=== PATIENT | female | born 1990 | race Caucasian/White ===

== ENCOUNTER → 2016-08-22 | Outpatient (REF) | payer OTHER, MEDICAID ==
[~2016-08-22] MED LIST: ACET50TA PO; AMPI50CA PO; CEPH500C PO; COLA100C PO; FERR325T3 PO; IBUP800T23 PO; IBUP80TA PO; INDO50CA PO; MACR100C3 PO; MAKE250I IM; OXYC1TAB23 PO; PERC5TAB6 PO; PRENTAB7 PO; ZOFR20TA PO
== END | disposition home or self-care (01) ==
LOC: M LAB REF 12:44
PROVIDERS: ATTEND Advanced Practice Midwife
DX: R30.0 Dysuria (principal)

== ENCOUNTER → 2016-08-26 | Outpatient (CLI) | payer BC, OTHER, MEDICAID ==
[2016-08-26 13:23] LABS: BASO # 0.1 K/mm3 (0.0-0.2); BASO % 1.1 % (0.0-1.0); EOS # 0.1 K/mm3 (0.0-0.50); EOS % 1.4 % (0.0-3.0); LARGE UNSTAINED CELL # 0.2 K/mm3 (0.0-0.4); LARGE UNSTAINED CELL % 2.9 % (0.0-4.0); LYMPH # 2.6 K/mm3 (1.5-6.5); LYMPH % 34.3 % (24.0-44.0); MEAN CORPUSCULAR HEMOGLOBIN 27.7 pg (27.0-33.0); MEAN CORPUSCULAR HGB CONC 31.7 g/dl (32.0-36.5); MEAN CORPUSCULAR VOLUME 87.2 fl (80.0-96.0); MONO # 0.5 K/mm3 (0.0-0.8); MONO % 6.3 % (0.0-5.0); NEUTROPHILS # 4.1 K/mm3 (1.8-7.7); PLATELET COUNT, AUTOMATED 417 k/mm3 (150-450); RED CELL DISTRIBUTION WIDTH 13.1 % (11.5-14.5); WHITE BLOOD COUNT 7.6 K/mm3 (4.0-10.0)
[2016-08-26 13:50] LABS: ANION GAP 8 MEQ/L (8-16); BLOOD UREA NITROGEN 15 MG/DL (7-18); CALCIUM LEVEL 9.6 MG/DL (8.5-10.1); CARBON DIOXIDE LEVEL 29 MEQ/L (21-32); CHLORIDE LEVEL 103 MEQ/L (98-107); CREATININE FOR GFR 0.86 MG/DL (0.55-1.02); GLOMERULAR FILTRATION RATE > 60.0 (>60); GLUCOSE, FASTING 66 MG/DL (70-105); POTASSIUM SERUM 4.9 MEQ/L (3.5-5.1); SODIUM LEVEL 140 MEQ/L (136-145)
== END | disposition home or self-care (01) ==
LOC: M SMT 11:37
PROVIDERS: ATTEND Nurse Practitioner Family
DX: N20.0 Calculus of kidney (principal); D72.829 Elevated white blood cell count, unspecified

== ENCOUNTER → 2016-09-04 | Outpatient (CLI) | payer BC, MEDICAID ==
--- NOTE | 2016-09-04 11:53 | REP ---
CT ABDOMEN AND PELVIS WITHOUT CONTRAST: 09/04/2016 INDICATION: Renal stones. COMPARISON: None. TECHNIQUE: 3 mm contiguous spiral axial sections performed through the abdomen and pelvis without contrast. FINDINGS: The lung bases are clear bilaterally. The liver, spleen, and pancreas are without focal lesions. The gallbladder is without stones, wall thickening or biliary dilatation. The adrenal glands are normal. There is an indwelling left percutaneous nephrostomy with pigtail portion of the catheter within the left renal pelvis. There is a 6 mm irregular calculus within the lower pole left kidney on image 54, series 201, which is consistent with nonobstructing nephrocalculus. A small portion of catheter tubing of 7 mm length is projected over the lower pole, left renal rosas on image 48, series 201. There is a nonobstructing 5 mm lower pole right nephrocalculus as well as a 3 mm nonobstructing mid pole right nephrocalculus. There is no perinephric stranding. There are no visualized calcifications identified within the right ureter. Calcifications within the left pelvis on image 100, series 201, 4 mm in diameter , are most likely vascular in etiology. The abdominal aorta is of normal course and caliber. There are no pathologically enlarged retroperitoneal nodes. The uterus and adnexa are generous in size consistent with young patient age. There is no free fluid in the cul-de-sac. There is generalized under distention most compatible with spasm within the ascending and transverse colon. The terminal ileum is normal. The appendix is without inflammation. There is no free air or ascites. IMPRESSION: 1. There is an indwelling left percutaneous nephrostomy. There is a nonobstructing 6 mm calculus lower pole, left kidney. Additionally, there does appear to be a small piece of probable catheter tubing projected over the posterior mid to lower pole left kidney, best seen in image 48, series 201. 2. Calcification within the left lower pelvis of 5 mm diameter is likely vascular in etiology. This could be proved by obtaining a left retrograde pyelogram or anterograde pyelogram. 3. 2 nonobstructing right nephrocalculi, largest 5 mm. MTDD
== END | disposition home or self-care (01) ==
LOC: M RAD 10:32
PROVIDERS: ATTEND Nurse Practitioner Family
DX: N20.0 Calculus of kidney (principal); Z93.6 Other artificial openings of urinary tract status

== ENCOUNTER → 2016-09-08 | Outpatient (REF) | payer BC, MEDICAID | END | disposition home or self-care (01) | LOC: M SMT 14:29 | PROVIDERS: ATTEND Nurse Practitioner Family | DX: N20.0 Calculus of kidney (principal); N39.0 Urinary tract infection, site not specified ==

== ENCOUNTER → 2016-09-17 | Day surgery (SDC) | payer BC, OTHER, MEDICAID ==
[~2016-09-17] VITALS: Ht 147.3 cm; Wt 68.1 kg
[~2016-09-17] MED LIST changes: +CIPR500T89 PO; +CONRAY-60 60% 50ML VIAL (Q9961) As Ordered ONE; +CONRAY-60 60% 50ML VIAL (Q9961) XX ONE; +HYDROmorphone HCL 1 MG/ML SYRINGE (J1170) As Ordered ONE; +LIDOCAINE 2% INJ 100 MG/5 ML SDV (FOR ANES.) As Ordered ONE; +LR 1,000 ML IV SCH; +METOCLOPRAMIDE INJ 10MG/2ML VIAL (J2765) As Ordered ONE; +MIDAZOLAM INJ 2 MG/2 ML VIAL (J2250) As Ordered ONE; +ONDANSETRON 4MG/2ML VIAL (J2405) As Ordered ONE; +ONDANSETRON 4MG/2ML VIAL (J2405) IV PRN; +PERCOCET 5MG/325MG TAB PO PRN; +PROPOFOL 200 MG/20 ML VIAL As Ordered ONE; +ePHEDrine SULFATE 25 MG/5 ML(5MG/ML) SYRINGE As Ordered ONE; +fentaNYL 100 MCG/2 ML INJECTION (J3010) As Ordered ONE; +fentaNYL 100 MCG/2 ML INJECTION (J3010) IV PRN; +oxyBUTYnin 5 MG TAB PO PRN
[2016-09-17 09:18] LABS: CONTROL LINE UCG INT CTR LINE PRESENT
[2016-09-17] MEDS: HYDROmorphone HCL 1 MG/ML SYRINGE (J1170) IV PRN ×5 (14:47→15:34)
--- NOTE | 2016-09-17 15:13 | REP ---
C-ARM VIEWS DURING RETROGRADE PYELOGRAM: Two C-arm views are performed. The first view shows bilateral ureteral stents with their distal ends coiled in the region of the urinary bladder. The second view shows the right ureteral stent with the proximal end coiled in the region of the right kidney. There is contrast in the left pelvicaliceal system, partially opacifying it with the proximal end of the left ureteral stent coiled in the left renal pelvis. 25 seconds fluoroscopy time utilized. Signed by Balta Saldaña MD 09/17/2016 07:40 P
[2016-09-17 18:04] VITALS: BP 124/67
--- NOTE | 2016-09-18 16:34 | RO ---
DATE OF PROCEDURE: 09/17/2016 PREPROCEDURE DIAGNOSIS: Kidney stones. POSTPROCEDURE DIAGNOSIS: Kidney stones. PROCEDURE: Cystoscopy, bilateral ureteroscopy with laser lithotripsy and basket extraction of stones, bilateral retrograde pyelograms with intraoperative interpretation of images, bilateral ureteral stent placement, left nephrostomy tube removal. SURGEON: Dr. Minh Molina FIELD REIMBURSEMENT MANAGER: None. ANESTHESIA: General. OPERATIVE INDICATIONS: This is a 26-year-old female who is 1 month . She presented several months ago with acute onset left flank pain and was found to have moderate to severe left hydronephrosis presumably to an obstructing ureteral stone. She had a nephrostomy tube placed at that time. This tube has been intermittently changed and now, after she delivered, we had a CAT scan obtained. CAT scan was notable for a 5 mm right kidney stone as well as left-sided kidney stones and possible ureteral stones. She was brought to the operating room today for the above listed procedure. DESCRIPTION OF PROCEDURE: The patient was brought to the operating room and general anesthesia induced. Prophylactic antibiotics were infused. She was then placed in the dorsal lithotomy position and prepped and draped in the usual sterile fashion. The first thing we did was remove the left nephrostomy tube, and dressings were applied to that. Next, a cystoscope was inserted into the urethral meatus and advanced into the bladder. A wire was advanced up the right collecting system. Over the wire, a ureteral access sheath was advanced up the right collecting system. The stylet was then removed, and the wire was secured to the drape to serve as a safety wire. We then went up the right ureter with the flexible ureteroscope. Within the right kidney, only one stone was seen. This stone was about 5 mm in size. We grasped the stone with the basket and removed it from the kidney. A retrograde pyelogram was performed, and it was notable for no extravasation or hydronephrosis. At this point, the access sheath was removed along with the ureteroscope. I then utilized the previously placed wire to advance a #6- Macanese x 22-32 cm JJ ureteral stent up into the right collecting system. The wire was then removed, and there were adequate curls of the stent in the right renal pelvis and in the bladder. I then turned my attention to the left collecting system. A wire was then advanced up the left collecting system, and a ureteral access sheath was advanced over the wire up into the left collecting system. The stylet was then removed, leaving the wire in place. The wire was then secured to the drape to serve as a safety wire. Within the left kidney, there were two large stones seen. Of note, these stones appeared to be calcifications that had broken off in the nephrostomy tube. These we were able to fragment into smaller pieces using a 200 micron laser fiber, and then the larger pieces were removed. I then withdrew the ureteroscope and within the ureter, there did appear to be two separate stones. Both were about 4-5 mm in size. Both of these stones were grasped with a basket and were removed. The remainder of the ureter appeared to be free of stones. A retrograde pyelogram was performed, and it was notable for moderate left hydronephrosis with no extravasation. At this point, the ureteral access sheath was removed along with the ureteroscope and I utilized the wire to advance a #6-Macanese x 22-32 cm JJ ureteral stent up into the left collecting system. The wire was then removed, and there were adequate curls of the stent in the left renal pelvis and in the bladder. The bladder was then emptied of all fluids. This marked the conclusion of the procedure. The patient was then taken out of the dorsal lithotomy position, awakened from anesthesia, and transported to the recovery room in stable condition. ESTIMATED BLOOD LOSS: 0 mL. COMPLICATIONS: None. SPECIMENS: Kidney stones. PLAN: The patient will be brought back to be seen in the clinic in a week or two for stent removal. NIDHI
== END ==
LOC: M SDC 08:19
PROVIDERS: ATTEND Urology
DX: O90.89 Other complications of the puerperium, not elsewhere classified (principal); N20.0 Calculus of kidney; Z79.899 Other long term (current) drug therapy; Z87.442 Personal history of urinary calculi
CPT/HCPCS: 52332; 52352; 52356; 74420; 82360; 84703; 88300; C2617; J0690; J1170; J2250; J2405; J2765; J3010; Q9961

== ENCOUNTER → 2016-12-30 | Outpatient (REF) | payer BC, MEDICAID, OTHER ==
[~2016-12-30] MED LIST changes: -COLA100C PO; +COLA100C3 PO; -CONRAY-60 60% 50ML VIAL (Q9961) As Ordered ONE; -CONRAY-60 60% 50ML VIAL (Q9961) XX ONE; -HYDROmorphone HCL 1 MG/ML SYRINGE (J1170) As Ordered ONE; -LIDOCAINE 2% INJ 100 MG/5 ML SDV (FOR ANES.) As Ordered ONE; -LR 1,000 ML IV SCH; -METOCLOPRAMIDE INJ 10MG/2ML VIAL (J2765) As Ordered ONE; -MIDAZOLAM INJ 2 MG/2 ML VIAL (J2250) As Ordered ONE; -ONDANSETRON 4MG/2ML VIAL (J2405) As Ordered ONE; -ONDANSETRON 4MG/2ML VIAL (J2405) IV PRN; -PERCOCET 5MG/325MG TAB PO PRN; -PROPOFOL 200 MG/20 ML VIAL As Ordered ONE; -ePHEDrine SULFATE 25 MG/5 ML(5MG/ML) SYRINGE As Ordered ONE; -fentaNYL 100 MCG/2 ML INJECTION (J3010) As Ordered ONE; -fentaNYL 100 MCG/2 ML INJECTION (J3010) IV PRN; -oxyBUTYnin 5 MG TAB PO PRN
== END ==
LOC: M LAB REF 16:44
PROVIDERS: ATTEND Obstetrics & Gynecology
DX: Z12.4 Encounter for screening for malignant neoplasm of cervix (principal)

== ENCOUNTER → 2017-07-27 | Outpatient (REF) | payer OTHER, MEDICAID ==
[~2017-07-27] MED LIST changes: +AMPI500C9 PO; -AMPI50CA PO; +CIPR-249 PO; -CIPR500T89 PO; -COLA100C3 PO; +COLA100C5 PO; +IBUP1TAB7 PO; -IBUP800T23 PO; -MACR100C3 PO; +MACR100C43 PO; +PERC5TAB12 PO; -PERC5TAB6 PO
[2017-07-28 11:51] LABS: BASO # 0.1 10^3/uL (0.0-0.2); BASO % 0.7 % (0.0-1.0); EOS # 0.2 10^3/uL (0.0-0.50); EOS % 2.6 % (0.0-3.0); IMMATURE GRANULOCYTE % 0.2 % (0-0); LYMPH # 2.8 10^3/uL (1.5-6.5); LYMPH % 31.7 % (24.0-44.0); MEAN CORPUSCULAR HEMOGLOBIN 28.4 pg (27.0-33.0); MEAN CORPUSCULAR HGB CONC 33.1 g/dl (32.0-36.5); MONO # 0.6 10^3/uL (0.0-0.8); MONO % 6.4 % (0.0-5.0); NEUTROPHILS # 5.1 10^3/uL (1.8-7.7); NEUTROPHILS % 58.4 % (36.0-66.0); PLATELET COUNT, AUTOMATED 289 10^3/uL (150-450); RED CELL DISTRIBUTION WIDTH 12.8 % (11.5-14.5); WHITE BLOOD COUNT 8.8 10^3/uL (4.0-10.0)
[2017-07-28 12:38] LABS: THYROXINE (T4) 8.8 UG/DL (4.5-12.0)
== END ==
LOC: M SFHCCLAY 15:36
PROVIDERS: ATTEND Family Medicine
DX: R53.82 Chronic fatigue, unspecified (principal); D64.9 Anemia, unspecified

== ENCOUNTER → 2018-05-20 | Outpatient (CLI) | payer OTHER ==
[2018-05-20 18:14] LABS: BASO # 0.1 10^3/uL (0.0-0.2); BASO % 0.5 % (0.0-1.0); EOS # 0.1 10^3/uL (0.0-0.50); EOS % 1.2 % (0.0-3.0); HEMATOCRIT 36.7 % (36.0-47.0); HEMOGLOBIN 12.1 g/dl (12.0-15.5); IMMATURE GRANULOCYTE % 0.4 % (0-3.0); LYMPH # 2.4 10^3/uL (1.5-6.5); LYMPH % 22.8 % (24.0-44.0); MEAN CORPUSCULAR HEMOGLOBIN 28.7 pg (27.0-33.0); MONO # 0.9 10^3/uL (0.0-0.8); MONO % 8.7 % (0.0-5.0); NEUTROPHILS # 6.9 10^3/uL (1.8-7.7); NEUTROPHILS % 66.4 % (36.0-66.0); PLATELET COUNT, AUTOMATED 307 10^3/uL (150-450); RED BLOOD COUNT 4.22 10^6/uL (4.00-5.40); RED CELL DISTRIBUTION WIDTH 12.9 % (11.5-14.5); WHITE BLOOD COUNT 10.5 10^3/uL (4.0-10.0)
[2018-05-20 20:40] LABS: CHLAMYDIA DNA AMPLIFICATION NEGATIVE (NEGATIVE); GC DNA AMPLIFICATION NEGATIVE (NEGATIVE)
[2018-05-21 13:55] LABS: HBsAg Prenatal NEGATIVE (NEGATIVE); HIV 1&2 SCREEN CENTAUR NEGATIVE (NEGATIVE); RUBELLA IgG QUALITATIVE EQUIVOCAL (IMMUNE)
[2018-05-21 13:55] LABS: HEPATITIS C VIRUS ABY INDEX 0.2 INDEX (<0.8)
== END ==
LOC: M SMT 14:01
DX: Z34.81 Encounter for supervision of other normal pregnancy, first trimester (principal); Z36.89 Encounter for other specified antenatal screening; Z3A.10 10 weeks gestation of pregnancy
CPT/HCPCS: 86762

== ENCOUNTER 2018-06-17 10:32 | Day surgery (SDC) | payer OTHER, SELFPAY ==
[2018-06-17 10:58] LABS: HEMATOCRIT 33.9 % (36.0-47.0); HEMOGLOBIN 11.4 g/dl (12.0-15.5); MEAN CORPUSCULAR HEMOGLOBIN 28.7 pg (27.0-33.0); MEAN CORPUSCULAR HGB CONC 33.6 g/dl (32.0-36.5); MEAN CORPUSCULAR VOLUME 85.4 fl (80.0-96.0); PLATELET COUNT, AUTOMATED 246 10^3/uL (150-450); RED BLOOD COUNT 3.97 10^6/uL (4.00-5.40); RED CELL DISTRIBUTION WIDTH 12.9 % (11.5-14.5); WHITE BLOOD COUNT 12.7 10^3/uL (4.0-10.0)
[2018-06-17] MEDS: LR 1,000 ML IV (11:00)
[2018-06-17] MEDS ORDERED: MIDAZOLAM INJ 2 MG/2 ML VIAL (J2250) As Ordered (11:01)
[2018-06-17] MEDS ORDERED: LIDOCAINE 2% INJ 100 MG/5 ML SDV (FOR ANES.) As Ordered (11:01)
[2018-06-17] MEDS ORDERED: PROPOFOL 200 MG/20 ML VIAL As Ordered ×2 (11:01→12:23)
[2018-06-17] MEDS ORDERED: fentaNYL 100 MCG/2 ML INJECTION (J3010) As Ordered (11:02)
[2018-06-17] MEDS ORDERED: PERCOCET 5MG/325MG TAB PO (12:00)
[2018-06-17] MEDS ORDERED: CHLOROPROCAINE 2 % INJ PRES.FREE 20 ML VIAL (J2400) As Ordered (12:18)
[2018-06-17] MEDS ORDERED: ONDANSETRON 4MG/2ML VIAL (J2405) As Ordered (12:18)
[2018-06-17] MEDS ORDERED: ONDANSETRON 4MG/2ML VIAL (J2405) IV (13:15)
[2018-06-17] MEDS ORDERED: LR 1,000 ML IV (13:15)
[2018-06-17] MEDS ORDERED: fentaNYL 100 MCG/2 ML INJECTION (J3010) IV (13:15)
== END 2018-06-17 15:02 | disposition home or self-care (01) ==
LOC: M SDC 15:02
DX: O34.31 Maternal care for cervical incompetence, first trimester (principal); Z3A.14 14 weeks gestation of pregnancy
CPT/HCPCS: 59320

== ENCOUNTER → 2018-07-30 | Outpatient (CLI) | payer OTHER | LOC: M SMT 12:54 | DX: Z36.89 Encounter for other specified antenatal screening (principal); Z3A.19 19 weeks gestation of pregnancy | CPT/HCPCS: 76811 ==

== ENCOUNTER → 2018-11-11 | Outpatient (REF) | payer OTHER ==
[~2018-11-11] MED LIST changes: -ACET50TA PO; +MAPA500T2 PO; +PRENTAB55 PO; +UNIS25TA3 PO; +VITA100T96 PO; -ZOFR20TA PO; +ZOFR4TAB16 PO
== END ==
LOC: M LAB REF 16:52
PROVIDERS: ATTEND Obstetrics & Gynecology
DX: Z34.83 Encounter for supervision of other normal pregnancy, third trimester (principal)

== ENCOUNTER 2018-12-06 05:26 | Inpatient (IN) | payer OTHER ==
[~2018-12-06] VITALS: Ht 146.1 cm; Wt 85.6 kg
[2018-12-06] VITALS (9 sets, daily range): BP systolic 100–117; BP diastolic 54–65
[~2018-12-06 05:26] MED LIST changes: +VITA100T77 PO; -VITA100T96 PO
[2018-12-06] MEDS ORDERED: LR 1,000 ML IV SCH (05:49)
[2018-12-06] MEDS ORDERED: LACTATED RINGER'S 1000 ML IV STA (05:49)
[2018-12-06] MEDS ORDERED: ceFAZolin 2 GM/D5W 50 ML IV BAG (J0690 PER 500MG) As Ordered ONE (05:54)
[2018-12-06] MEDS ORDERED: BICITRA 30ML SOLN UDC As Ordered ONE (05:54)
[2018-12-06] MEDS ORDERED: BICITRA 30ML SOLN UDC PO ONE (06:00)
[2018-12-06 06:29] LABS: HEMATOCRIT 33.5 % (36.0-47.0); MEAN CORPUSCULAR HEMOGLOBIN 28.8 pg (27.0-33.0); MEAN CORPUSCULAR HGB CONC 32.8 g/dl (32.0-36.5); MEAN CORPUSCULAR VOLUME 87.7 fl (80.0-96.0); PLATELET COUNT, AUTOMATED 190 10^3/uL (150-450); RED BLOOD COUNT 3.82 10^6/uL (4.00-5.40); WHITE BLOOD COUNT 11.8 10^3/uL (4.0-10.0)
[2018-12-06] MEDS ORDERED: BUPIVACAINE/DEXTROSE 0.75% 2 ML AMP As Ordered ONE (07:09)
[2018-12-06] MEDS ORDERED: MORPHINE PRES-FREE INJ 10 MG/10 ML VIAL (J2274) As Ordered ONE (07:10)
[2018-12-06] MEDS ORDERED: NALOXONE INJ 0.4 MG/1 ML VIAL (J2310) IV PRN ×2 (07:44)
[2018-12-06] MEDS ORDERED: NALBUPHINE HCL 10 MG/ML AMP (J2300) IV PRN ×2 (07:44→09:15)
[2018-12-06] MEDS ORDERED: diphenhydrAMINE INJ 50MG/ML VIAL (J1200) IV PRN (07:44)
[2018-12-06] MEDS ORDERED: ONDANSETRON 4MG/2ML VIAL (J2405) IV PRN ×3 (07:44→09:15)
[2018-12-06] MEDS ORDERED: OXYTOCIN INJ 10 UNITS/ML VIAL (J2590) As Ordered ONE ×2 (07:47→08:29)
[2018-12-06] MEDS ORDERED: PHENYLephrine HCL 500 MCG/5 ML (100MCG/ML) SYRINGE (J2370) As Ordered ONE (07:47)
[2018-12-06] MEDS ORDERED: ONDANSETRON 4MG/2ML VIAL (J2405) As Ordered ONE ×2 (08:29→09:42)
[2018-12-06] MEDS ORDERED: KETOROLAC 60 MG/2 ML VIAL (J1885) As Ordered ONE (08:29)
[2018-12-06] MEDS ORDERED: OXYTOCIN DRIP 30 UNITS in APPROPRIATE DILUENT 1 EA IV SCH (08:52)
[2018-12-06] MEDS: DOCUSATE SODIUM 100 MG CAP PO SCH ×2 (09:00→21:33)
[2018-12-06] MEDS ORDERED: MEASLES,MUMPS,RUBELLA VACCINE INJ (MMR-II) (90707) SC SCH (09:00)
[2018-12-06] MEDS: PRENATAL VITAMINS CHEWABLE TABLET PO SCH (09:00)
[2018-12-06] MEDS ORDERED: RHOGAM 300 MCG (1500 IU) INJ (J2790) IM SCH (09:00)
[2018-12-06] MEDS ORDERED: PROMETHAZINE 25 MG TAB PO PRN (09:00)
[2018-12-06] MEDS ORDERED: OXYTOCIN 30 UNITS IN 0.9% NaCl 500ML IV BAG (J2590) As Ordered ONE (09:02)
[2018-12-06] MEDS ORDERED: METHYLERGONOVINE MALEATE 0.2 MG/ML VIAL (J2210) IM STA (09:12)
[2018-12-06] MEDS ORDERED: KETOROLAC 30 MG/ML VIAL (J1885) IV PRN (09:15)
[2018-12-06] MEDS ORDERED: MEPERIDINE INJ 25 MG/ML VIAL (J2175) IV PRN (09:15)
[2018-12-06] MEDS ORDERED: fentaNYL 100 MCG/2 ML INJECTION (J3010) IV PRN (09:15)
[2018-12-06] MEDS ORDERED: PERCOCET 5MG/325MG TAB PO PRN (09:15)
[2018-12-06] MEDS ORDERED: ASPIRIN 325 MG TAB PO ONE (09:15)
[2018-12-06] MEDS ORDERED: HYDROMORPHONE HCL 0.5 MG/ 0.5 ML SYRINGE (J1170 PER 1) IV PRN (09:15)
--- NOTE | 2018-12-06 09:19 | RO ---
DATE OF OPERATION: 12/06/2018 PREOPERATIVE DIAGNOSES: 1. History of prior section for an elective repeat. 2. Intrauterine at 39 weeks. POSTOPERATIVE DIAGNOSES: 1. History of prior section for an elective repeat. 2. Intrauterine at 39 weeks. SURGEON: Mitzy Ferreira MD OUTPATIENT DIETITIAN: Saida Frankel CNM ANESTHESIA: Spinal. ESTIMATED BLOOD LOSS: 600 mL. INTRAVENOUS FLUIDS: 1700 mL Lactated Ringer's solution. URINE OUTPUT: 125 mL. PREOPERATIVE ANTIBIOTICS: 2 grams of Ancef. OPERATIVE FINDINGS: Liveborn female infant, scores of 8 and 9, weight was 3470 grams, or 7 pounds 10 ounces. SPECIMENS: None. DESCRIPTION OF OPERATION: After informed consent was obtained and written consent was reviewed, the patient was brought to the operating room where spinal anesthesia was placed. She was then placed in supine position with a left lateral tilt. A Montalvo catheter was placed and set to gravity. She was then prepped and draped in a normal sterile fashion. A time out operating room was then performed identifying the patient, procedure to be performed, as well as drug allergies. Anesthesia was tested and deemed to be adequate. A Pfannenstiel skin incision was then made and this was carried down to the underlying rectus fascia. The fascia was scored and this incision was extended bilaterally. The fascia was then dissected off the underlying muscles both superiorly and inferiorly. The rectus muscles were in the midline. The peritoneum was then entered. The vesicouterine peritoneum was then identified, was tented and excised to create a bladder flap. A curvilinear incision was then made along the lower uterine segment. Amniotomy was performed productive clear fluid. The head was brought to the level of incision and delivered atraumatically along with shoulders and corpus. Cord was clamped times two and was cut. Infant was taken over to the warmer with a good cry. The placenta was then drained and delivered grossly intact. The uterus was then cleared of all clots and debris. The uterine incision was then closed in two layers using #0 Vicryl first in a running locking fashion followed by a second layer for imbrication in a running nonlocking fashion. The abdomen was then suctioned. The uterine incision was reinspected and noted be hemostatic. The anterior peritoneum was then reapproximated with #3-0 Vicryl. The rectus muscles were reapproximated with #3-0 Vicryl. The fascia was then closed with #0 Vicryl in a running nonlocking fashion. The subcutaneous tissue was then irrigated and suctioned. The subcutaneous tissue was then reapproximated with #3-0 Vicryl. Several subdermal stitches were place with #0 Vicryl and the skin was closed with #4-0 Monocryl in a subcuticular fashion. The incision was then cleaned and dried and was dressed. The patient was then taken to recovery in stable condition. Counts were correct. The couple has decided to name their daughter Keshawn. Saida Frankel, my surgical garment assembler, played an essential role during surgery. She assisted with tissue retraction and identification, wound closure as well as delivery of the .
--- NOTE | 2018-12-06 09:32 | REP ---
Portable chest: Single view. History: Chest pain. Comparison study: No comparison study. Findings: The lungs are well inflated and clear. Pleural angles are sharp. Heart size is normal. Pulmonary vasculature is not increased. No bony abnormality is seen. Impression: Negative portable chest x-ray. Electronically Signed by John Madrigal MD 12/06/2018 09:23 A
[2018-12-06] MEDS ORDERED: fentaNYL 100 MCG/2 ML INJECTION (J3010) As Ordered ONE (09:37)
[2018-12-06 10:00] LABS: MB/CK RELATIVE INDEX 1.17 (< OR =4)
[2018-12-06] MEDS: LR 1,000 ML IV SCH ×2 (10:20→17:12)
--- NOTE | 2018-12-06 12:00 | ECGEPIP ---
Stationary ECG Study [facility] Test Date: 2018-12-06 Pat Name: ESTER SHAH Department: Room: [place] [address] Gender: F Instructional Resource Teacher: ANDREA : 1990 Requested By: VIMAL Landis Order Number: [id number] Reading MD: Johnathan Lopez Measurements Intervals [place] Rate: 86 P: 34 NM: 119 QRS: 35 QRSD: 82 T: 27 QT: 361 QTc: 433 Interpretive Statements SINUS RHYTHM WITH SHORT NM INTERVAL Comparison tracing not on file Electronically Signed On 12-06-2018 11:59:58 EDT by Johnathan Lopez
[2018-12-06] MEDS: METOCLOPRAMIDE INJ 10MG/2ML VIAL (J2765) IV PRN ×2 (12:15→17:38)
[2018-12-06] MEDS: KETOROLAC 30 MG/ML VIAL (J1885) IV SCH ×2 (15:24→21:34)
[2018-12-07] MEDS: LR 1,000 ML IV SCH (01:23)
[2018-12-07 02:00] VITALS: BP 106/55
[2018-12-07] MEDS: KETOROLAC 30 MG/ML VIAL (J1885) IV SCH (03:03)
[2018-12-07 06:00] VITALS: BP 107/58
[2018-12-07 06:51] LABS: HEMATOCRIT 26.7 % (36.0-47.0); MEAN CORPUSCULAR HGB CONC 32.2 g/dl (32.0-36.5); MEAN CORPUSCULAR VOLUME 89.9 fl (80.0-96.0); PLATELET COUNT, AUTOMATED 179 10^3/uL (150-450); RED BLOOD COUNT 2.97 10^6/uL (4.00-5.40); WHITE BLOOD COUNT 13.7 10^3/uL (4.0-10.0)
[2018-12-07 07:03] LABS: HEMOGLOBIN 8.6 g/dl (12.0-15.5)
[2018-12-07] MEDS: DOCUSATE SODIUM 100 MG CAP PO SCH ×2 (08:21→22:07)
[2018-12-07] MEDS: PRENATAL VITAMINS CHEWABLE TABLET PO SCH (08:21)
[2018-12-07] MEDS: PERCOCET 5MG/325MG TAB PO PRN ×3 (08:23→19:34)
[2018-12-07 10:04] VITALS: BP 109/56
[2018-12-07] MEDS: IBUPROFEN 800 MG TAB PO SCH ×2 (10:31→18:19)
--- NOTE | 2018-12-07 10:44 | REP ---
CT ABDOMEN/PELVIS WITHOUT IV OR ORAL CONTRAST: RENAL STONE PROTOCOL. HISTORY: Right-sided kidney stones. Status post the previous day. Comparison CT study is from September 04, 2016. FINDINGS: Preliminary digital front desk clerk radiograph demonstrates air-filled loops of colon in the central abdomen. The lung bases are clear. The liver and the spleen are normal in size, homogeneous in texture. No adrenal lesion is seen. No pancreatic or gallbladder abnormality is observed. There is significant uterine enlargement as expected post . There is anterior abdominal wall postoperative air in the lower anterior abdominal wall. There are tiny droplets of intraperitoneal air postop. Small and large intestinal bowel loops are unremarkable. There is bilateral intrarenal nephrolithiasis. There is an extrarenal pelvis configuration both kidneys, but no intrarenal hydronephrosis is seen. In the right kidney, there are three intrarenal calculi. The largest of these is at the lower pole measuring 12.5 mm in greatest diameter. The left kidney contains four intrarenal calculi. The largest of these is also in its lower pole measuring 9 mm in greatest diameter. No ureteral or bladder calculi are appreciated. IMPRESSION: Marked enlargement of the uterus with post section surgical changes in the anterior abdominal wall. Bilateral intrarenal nephrolithiasis without evidence of obstructive uropathy. No ureteral or bladder calculi seen. Electronically Signed by John Madrigal MD 12/07/2018 08:30 P
[2018-12-07 14:00] VITALS: BP 100/52
[2018-12-07 17:59] VITALS: BP 98/59
[2018-12-07 22:30] VITALS: BP 103/63
[2018-12-08] MEDS: PERCOCET 5MG/325MG TAB PO PRN ×3 (00:02→12:20)
[2018-12-08 02:21] VITALS: BP 95/51
[2018-12-08] MEDS: IBUPROFEN 800 MG TAB PO SCH ×2 (03:07→11:38)
[2018-12-08 06:10] VITALS: BP 101/50
[2018-12-08] MEDS ORDERED: OXYC1TAB23 PO (07:38)
[2018-12-08] MEDS ORDERED: IBUP1TAB7 PO (07:43)
[2018-12-08] MEDS: PRENATAL VITAMINS CHEWABLE TABLET PO SCH (08:06)
[2018-12-08] MEDS: DOCUSATE SODIUM 100 MG CAP PO SCH (08:06)
[2018-12-08] MEDS ORDERED: MOM 30ML SUSPENSION UDC PO PRN (08:15)
[2018-12-08 10:00] VITALS: BP 99/52
--- NOTE | 2018-12-09 09:16 | DSES ---
DATE OF ADMISSION: 12/06/2018 DATE OF DISCHARGE: 12/08/2018 28-year-old, (G) 3, para (P) 2 female, at 39 weeks gestation, presents for elective repeat section. significant for cervical incompetence status post placement of cerclage. She has a history of one prior section. was also significant for symptomatic kidney stones. HOSPITAL COURSE: On 12/06/2018, the patient underwent repeat low transverse section for a 7 pound 10 ounce female . The procedure was without complication. Her postoperative course was unremarkable. She had adequate return of bladder and bowel function. Her postoperative hemoglobin 8.6 g/dL. She had a repeat CT scan to assess kidney stones during her hospitalization. The CT scan showed three kidney stones in the right kidney. None were obstructing the kidneys. CT scan was done at the request of urology previously consulted on the patient and asked for imaging after delivery. On post-op day #2, she was deemed stable for discharge. ADMISSION DIAGNOSIS: at 39 weeks, prior section. DISCHARGE DIAGNOSIS: Delivered. PROCEDURE: Repeat low transverse section. DISPOSITION: Patient will followup with Dr. Ferreira in 2 weeks. She will followup with urology as soon as possible for further management of kidney stones.
== END 2018-12-08 12:50 | disposition home or self-care (01) | DRG 540 ==
LOC: M LDI 05:26 → M OBS 11:15
PROVIDERS: ADMIT Obstetrics & Gynecology; ATTEND Obstetrics & Gynecology
PROC: 10D00Z1 Extraction of Products of Conception, Low, Open Approach (ICD-10-PCS; principal; 2018-12-06 07:30)
DX: O34.211 Maternal care for low transverse scar from previous cesarean delivery (principal); Z37.0 Single live birth; Z3A.39 39 weeks gestation of pregnancy; O34.30 Maternal care for cervical incompetence, unspecified trimester; N20.0 Calculus of kidney

== ENCOUNTER → 2019-01-05 | Outpatient (REF) | payer OTHER ==
[~2019-01-05] MED LIST changes: -INDO50CA PO; +INDO50CA11 PO
[2019-01-05 18:35] LABS: APPEARANCE, URINE HAZY (CLEAR); BACTERIA, URINE AUTO NEGATIVE (NEGATIVE); BILIRUBIN, URINE AUTO NEGATIVE (NEGATIVE); BLOOD, URINE BLOOD 3+ (NEGATIVE); COLOR, URINE YELLOW (YELLOW); GLUCOSE, URINE (UA) AUTO NEGATIVE (NEGATIVE); KETONE, URINE AUTO TRACE mg/dL (NEGATIVE); LEUKOCYTE ESTERASE, URINE AUTO 1+ (NEGATIVE); MUCUS, URINE SMALL (NEGATIVE); NITRITE, URINE AUTO NEGATIVE (NEGATIVE); PROTEIN, URINE AUTO NEGATIVE (NEGATIVE); RBC, URINE AUTO TNTC /HPF (0-3); SPECIFIC GRAVITY URINE AUTO 1.016 (1.002-1.035); SQUAMOUS EPITHELIAL CELL UR AU 4 /HPF (0-6); UROBILINOGEN, URINE AUTO 0.2 mg/dL (0.0-2.0); WBC, URINE AUTO 15 /HPF (0-3)
== END ==
LOC: M SMT 17:16
PROVIDERS: ATTEND Nurse Practitioner Family
DX: Z01.818 Encounter for other preprocedural examination (principal); N20.0 Calculus of kidney

== ENCOUNTER 2019-01-07 10:23 | Day surgery (SDC) | payer OTHER ==
[~2019-01-07] VITALS: Ht 170.2 cm; Wt 70.2 kg
[~2019-01-07 10:23] MED LIST changes: +CONRAY-60 60% 50ML VIAL (Q9961) As Ordered ONE; +LIDOCAINE 2% INJ 100 MG/5 ML SDV (FOR ANES.) As Ordered ONE; +LR 1,000 ML IV ONE; +MIDAZOLAM INJ 2 MG/2 ML VIAL (J2250) As Ordered ONE; +ONDANSETRON 4MG/2ML VIAL (J2405) As Ordered ONE; +PROPOFOL 200 MG/20 ML VIAL As Ordered ONE; +dexameTHASONE 4 MG/ML 1ML VIAL (J1100) As Ordered ONE; +fentaNYL 100 MCG/2 ML INJECTION (J3010) As Ordered ONE
[2019-01-07 10:57] LABS: URINE PREG TEST NEGATIVE (NEGATIVE)
[2019-01-07] MEDS ORDERED: ePHEDrine SULFATE 25 MG/5 ML(5MG/ML) SYRINGE As Ordered ONE (15:07)
[2019-01-07] MEDS ORDERED: MEPERIDINE INJ 25 MG/ML VIAL (J2175) IV PRN (16:00)
[2019-01-07] MEDS ORDERED: METOCLOPRAMIDE INJ 10MG/2ML VIAL (J2765) IV PRN (16:00)
[2019-01-07] MEDS ORDERED: LR 1,000 ML IV SCH (16:00)
[2019-01-07] MEDS ORDERED: ONDANSETRON 4MG/2ML VIAL (J2405) IV PRN (16:00)
[2019-01-07] MEDS ORDERED: fentaNYL 100 MCG/2 ML INJECTION (J3010) IV PRN (16:00)
[2019-01-07] MEDS ORDERED: oxyBUTYnin 5 MG TAB PO PRN (16:00)
[2019-01-07] MEDS ORDERED: PERCOCET 5MG/325MG TAB PO PRN ×2 (16:00)
--- NOTE | 2019-01-07 16:24 | REP ---
C-ARM VIEW DURING URETERAL STENT PLACEMENT: Three C-Arm views are performed. There is placement of a right ureteral stent. The proximal end is coiled in the region of the right renal pelvis and the distal end is coiled in the region of the urinary bladder. A wire is seen in the left ureter with contrast partially opacifying the left pelvicaliceal system. 9 seconds fluoroscopy time utilized. Electronically Signed by Balta Saldaña MD 01/11/2019 10:06 A
[2019-01-07 18:35] VITALS: BP 125/71
--- NOTE | 2019-01-07 20:15 | RO ---
DATE OF PROCEDURE: 01/07/2019 PREPROCEDURE DIAGNOSIS: Bilateral kidney stones. POSTPROCEDURE DIAGNOSIS: Bilateral kidney stones. PROCEDURE: Cystoscopy, right ureteroscopy with laser lithotripsy and basket extraction of stones, left ureteroscopy, bilateral retrograde pyelograms with intraoperative interpretation of images, right ureteral stent placement. SURGEON: Dr. Minh Molina SALES REPRESENTATIVE ADDING MACHINES: None. ANESTHESIA: General. OPERATIVE INDICATIONS: This is a 28-year-old female who was found to have bilateral kidney stones measuring up to 1 cm on the right side. She was brought to the operating room today for the above listed procedure. DESCRIPTION OF PROCEDURE: The patient was brought to the operating room and general anesthesia induced. Prophylactic antibiotics were infused. She was then placed in the dorsal lithotomy position and prepped and draped in the usual sterile fashion. A rigid cystoscope was then inserted into the urethral meatus and advanced to the bladder. Once inside the bladder, a guidewire was advanced up the right collecting system. I then advanced the ureteral access sheath up the wire. I went up the access sheath with flexible ureteroscope and then the right kidney was thoroughly examined. Within an upper pole calyx, an approximately 1 cm stone was seen. The stone was then fragmented into smaller pieces using 272 micron laser fiber. All of the fragments were then removed using a basket. I then examined the remainder of the calices and no additional stones were seen. A retrograde pyelogram was then performed, noted for mild to moderate left hydronephrosis but no extravasation. I then withdrew the ureteroscope along with the access sheath, and of note, a very small, approximately 3 mm fragment was seen in the ureter, and this was grabbed with the basket as well. No additional stones were seen after that point. At this point, the previously placed wire was utilized to advance a 6-Libyan x 22-32 cm JJ ureteral stent up to the right collecting system. The wire was then removed, and there were adequate curls of the stent in the right renal pelvis and in the bladder. I then advanced a guidewire up the left collecting system. The ureteral access sheath was then advanced up the left collecting system. I went up the access sheath with a flexible ureteroscope and examined the left kidney thoroughly. Only very tiny stone fragments were seen. No large stones were seen. A retrograde pyelogram was then performed. It was notable for mild to moderate left hydronephrosis, no extravasation. I then withdrew the ureteroscope along with the access sheath and no stones were seen within the ureter. Of note, due to the patient's recent , the left ureter appeared to be very much dilated. Because of this, decision was made not to leave a stent. The wire was then completely removed, then the bladder emptied of all fluids, and this marked the conclusion of the procedure. The patient was then taken out of the dorsal lithotomy position, awakened from anesthesia, and transported to the recovery room in stable condition. Estimated blood loss: 5 mL. Complications: None. Specimens: Kidney stone fragments. PLAN: The patient will followup in the clinic in a week or two for stent removal.
== END 2019-01-07 18:40 | disposition home or self-care (01) ==
LOC: M SDC 10:23
PROVIDERS: ATTEND Urology
DX: N20.0 Calculus of kidney (principal); Z79.899 Other long term (current) drug therapy
CPT/HCPCS: 52356; 74420; 82360; 84703; 88300; C1769; C1894; C2617; J0690; J1100; J2250; J2405; J3010; Q9961

== ENCOUNTER → 2019-06-01 | Outpatient (REF) | payer OTHER ==
[~2019-06-01] MED LIST changes: -CONRAY-60 60% 50ML VIAL (Q9961) As Ordered ONE; -INDO50CA11 PO; +INDO50CA91 PO; -LIDOCAINE 2% INJ 100 MG/5 ML SDV (FOR ANES.) As Ordered ONE; -LR 1,000 ML IV ONE; -MIDAZOLAM INJ 2 MG/2 ML VIAL (J2250) As Ordered ONE; -ONDANSETRON 4MG/2ML VIAL (J2405) As Ordered ONE; -PROPOFOL 200 MG/20 ML VIAL As Ordered ONE; -dexameTHASONE 4 MG/ML 1ML VIAL (J1100) As Ordered ONE; -fentaNYL 100 MCG/2 ML INJECTION (J3010) As Ordered ONE
== END ==
LOC: M LAB REF 17:19
PROVIDERS: ATTEND Plastic Surgery Surgery of the Hand
DX: D49.2 Neoplasm of unspecified behavior of bone, soft tissue, and skin (principal)

== ENCOUNTER → 2020-04-03 | Outpatient (REF) | payer OTHER | LOC: M SFHCCLAY 16:15 | PROVIDERS: ATTEND Nurse Practitioner Family | DX: N39.0 Urinary tract infection, site not specified (principal); R35.0 Frequency of micturition ==

== ENCOUNTER → 2020-06-11 | Outpatient (REF) | payer OTHER | LOC: M PLALAB 16:27 | PROVIDERS: ATTEND Obstetrics & Gynecology | DX: Z12.4 Encounter for screening for malignant neoplasm of cervix (principal) ==

== ENCOUNTER → 2020-06-11 | Outpatient (REF) | payer OTHER | LOC: M SFHCWAGY 06-08 10:08 | PROVIDERS: ATTEND Obstetrics & Gynecology | DX: Z01.419 Encounter for gynecological examination (general) (routine) without abnormal findings (principal); Z12.4 Encounter for screening for malignant neoplasm of cervix ==

== ENCOUNTER → 2021-06-10 | Outpatient (REF) | payer OTHER | LOC: M SFHCWAGY 12:59 | PROVIDERS: ATTEND Advanced Practice Midwife | DX: R30.0 Dysuria (principal) ==

== ENCOUNTER → 2021-07-04 | Outpatient (CLI) | payer OTHER ==
[2021-07-04 14:02] LABS: BASO % 0.4 % (0.0-1.0); EOS # 0.1 10^3/uL (0.0-0.5); EOS % 1.4 % (0.0-3.0); HEMATOCRIT 32.4 % (36.0-47.0); HEMOGLOBIN 10.7 g/dl (12.0-15.5); LYMPH # 2.1 10^3/uL (1.5-5.0); LYMPH % 22.7 % (24.0-44.0); MEAN CORPUSCULAR HEMOGLOBIN 28.6 pg (27.0-33.0); MEAN CORPUSCULAR VOLUME 86.6 fl (80.0-96.0); MONO # 0.8 10^3/uL (0.0-0.8); MONO % 9.1 % (2.0-8.0); PLATELET COUNT, AUTOMATED 228 10^3/uL (150-450); RED BLOOD COUNT 3.74 10^6/uL (4.00-5.40); WHITE BLOOD COUNT 9.1 10^3/uL (4.0-10.0)
[2021-07-04 15:18] LABS: HEPATITIS C VIRUS ABY INDEX 0.1 INDEX (<0.8); HIV 1&2 SCREEN CENTAUR NEGATIVE (NEGATIVE)
[2021-07-04 16:02] LABS: GC DNA AMPLIFICATION NEGATIVE (NEGATIVE)
== END ==
LOC: M PLALAB 09:46
PROVIDERS: ATTEND Obstetrics & Gynecology
DX: O09.291 Supervision of pregnancy with other poor reproductive or obstetric history, first trimester (principal); Z3A.10 10 weeks gestation of pregnancy

== ENCOUNTER → 2021-07-04 | Outpatient (CLI) | payer OTHER | LOC: M PLALAB 09:43 | PROVIDERS: ATTEND Obstetrics & Gynecology | DX: Z34.91 Encounter for supervision of normal pregnancy, unspecified, first trimester (principal) ==

== ENCOUNTER → 2021-07-13 | Outpatient (CLI) | payer OTHER ==
[~2021-07-13] MED LIST changes: +PRENTAB53 PO
== END ==
LOC: M LABSMTC 11:44
PROVIDERS: ATTEND Anesthesiology
DX: Z01.812 Encounter for preprocedural laboratory examination (principal); Z11.52 Encounter for screening for COVID-19

== ENCOUNTER 2021-07-17 06:20 | Day surgery (SDC) | payer OTHER ==
[~2021-07-17] VITALS: Ht 144.8 cm; Wt 67.6 kg
[~2021-07-17 06:20] MED LIST changes: +LIDOCAINE 1% MDV 20ML VIAL SQ PRN; +LR 1,000 ML IV ONE
--- OUTSIDE RECORDS SUMMARY | 2021-07-17 06:23 | CCD ---
Author Author [facility] Organization [facility] Address Unknown Phone Unavailable Care Team Providers Care Stem Crusher Name Role Phone Mitzy Ferreira Unavailable PROBLEMS Type Condition ICD9-CM Code URG98-CD Code Onset Dates Condition S tatus W/U Status Risk SNOMED Code Notes Problem Scoliosis of thoracic spine, unspecified scoliosis type M41.9 Active confirmed 488495102 Problem Supervision of other normal Z34.80 Ac tive confirm 966474493 Problem Renal stones N20.0 Active confirmed 1187154 7 Problem Chronic fatigue R53.82 Active confirmed 8422 9001 ALLERGIES No Known Allergies ENCOUNTERS from 1990 to 2021-07-15 Encounter Location Date Provider Diagnosis [facility] [address] [place] [address] [place] [address] Jun, Mitzy Ferreira IMMUNIZATIONS Vaccine Route Administration Date Status Meningococcal IM Intramuscular Mar 19, 2011 Administered Influenza 6mo & up Fluzone IM Intramuscular Jul 02, 2021 Admi nistered Influenza 6mo & up Fluzone IM Intramuscular May 15, 2014 Admi nistered SOCIAL HISTORY Tobacco Use: Social History Observation Description Date Details (start date - stop date) Never Smoker Sex Assigned At : Social History Observation Description Sex Assigned At Unknown Education: Question Answer Notes Level of Education: Not Finished College Audit Question Answer Notes Total Score: 1 Interpretation: Alcohol Education Language: Question Answer Notes Languages spoken: [place] Orthodoxy: Question Answer Notes Orthodoxy 33 None Drug and Alcohol Question Answer Notes Total Score: 0 Interpretation: No problems reported Alcohol Screening: Question Answer Notes Did you have a drink containing alcohol in the past year? No Points 0 Interpretation Negative BMI Care Goal Follow-Up Question Answer Notes Above Normal BMI Follow-Up Dietary management educatio n, guidance, and counseling Tobacco Use: Question Answer Notes Are you a: never smoker REASON FOR REFERRAL No Information VITAL SIGNS No information MEDICATIONS Medication SIG (Take, Route, Frequency, Duration) Notes Start Da te End Date Status Reglan 10 MG 1 tablet before meals Orally Twice a day as needed for nausea for 30 day(s) May, Not-Taking Vitamin 27-0.8 MG 1 tablet Orally Once a day Active Zofran 4 MG 1 tablet Orally every 8 hours as needed for nausea Jun, Not-Taking Ondansetron 4 MG 1 tablet on the tongue and a llow to dissolve Orally every 8 hours as needed for 30 day(s) Jun, Ac tive PROCEDURES No Information RESULTS No Results REASON FOR VISIT appt MEDICAL (GENERAL) HISTORY Type Description Date Medical History Hx of kidney stones Medical History Scoliosis Medical History Hx of anemia Surgical History Nephrostomy tube, lithotripsy-Dr. Mckeon er 2015 Surgical History 2015 Surgical History 12/06/2018 Surgical History ureteroscopy with bilateral stent placem ent 01/07/2019 Surgical History cysto bilateral stent removal 01/31/2019 Surgical History cervical cerclage for each Hospitalization History SX RELATED Hospitalization History childbirth Goals Section No Information Health Concerns No Information MEDICAL EQUIPMENT No Information MENTAL STATUS No Information FUNCTIONAL STATUS No Information ASSESSMENTS No Information PLAN OF TREATMENT Next Appt Details Provider Name:Mitzy Ferreira, 2021-07-17 0 7:30:00 AM, [address] [facility] [phone], [place], [address], Provider Name:Mitzy Saba Monrealn, 2021-07-31 0 9:00:00 AM, [address] [facility], , [place], [address], Provider Name:Kulwinder Doe, 09:00:00 AM, [address] [place] [address], , [place], [address], Insurance Providers Payer Name Payer Address Payer Phone Insured Name Patient Relati onship to Insured Coverage Start Date Coverage End Date [employer] [facility] [address] [facility] [id number] ESTER SHAH self
--- OUTSIDE RECORDS SUMMARY | 2021-07-17 06:23 | CCD ---
Author Author [facility] Organization [facility] Address Unknown Phone Unavailable Care Team Providers Care Vp Publisher Development Name Role Phone Mitzy Ferreira Unavailable PROBLEMS Type Condition ICD9-CM Code [id number] Code Onset Dates Condition S tatus W/U Status Risk SNOMED Code Notes Problem Scoliosis of thoracic spine, unspecified scoliosis type M41.9 Active confirmed 771331124 Problem Supervision of other normal Z34.80 Ac tive confirm 089752075 Problem Renal stones N20.0 Active confirmed 1293316 7 Problem Chronic fatigue R53.82 Active confirmed 8422 9001 ALLERGIES No Known Allergies ENCOUNTERS from 1992 to 2021-07-05 Encounter Location Date Provider Diagnosis [facility] [address] [place] [address] [place] [address] Jun, Mitzy Ferreira IMMUNIZATIONS Vaccine Route Administration [...] Education Language: Question Answer Notes Languages spoken: Belarusian Islam: Question Answer Notes Islam 33 None Sexual Hx: Question Answer Notes Had sex in the last 12 months (vaginal, oral, or anal)? Yes Have you ever had an STD? No Prevention Strategies discussed: Other with Men only Use protection? No Drug and Alcohol Question Answer Notes Total [...] needed for nausea for 30 day(s) May, Active Vitamin 27-0.8 MG 1 tablet Orally Once a day Active Zofran 4 MG 1 tablet Orally every 8 hours as needed for nausea Jun, Active Ondansetron 4 MG 1 tablet on the tongue and a llow to dissolve Orally every 8 hours as needed for 30 day(s) Jun, Ac tive PROCEDURES No Information RESULTS No Results REASON FOR VISIT 07/17/21 SURG AUTH MEDICAL (GENERAL) HISTORY Type Description Date Medical [...] Information ASSESSMENTS No Information PLAN OF TREATMENT Medication Medication Name Sig Start Date Stop Date Ondansetron 4 MG 1 tablet on the tongue and a llow to dissolve Orally every 8 hours as needed for 30 day(s) Jun, Next Appt Details Provider Name:Mitzy Monrealn, 2021-07-10 0 2:40:00 PM, [address] [place] [address] , [place], [address], Provider Name:Mitzy Monrealyasmine 2021-07-17 0 7:30:00 AM, [address] [place] [address] , [place], [address], Provider Name:Pina Rooney, 2021-07-17 5 02:00:00 PM, [address] [facility], , [place], [address], Provider Name:Kulwinder Doe, 09:00:00 AM, [address] [place] [address], , [place], [address], Insurance Providers Payer Name Payer Address Payer Phone Insured Name Patient Relati onship to Insured Coverage Start Date Coverage End Date [facility] COMMUNITY PLAN [facility] [address] [facility] [address] ESTER SHAH self
--- OUTSIDE RECORDS SUMMARY | 2021-07-17 06:23 | CCD ---
Author Author [facility] Organization [facility] Address Unknown Phone Unavailable Care Team Providers Care Survey Interviewer Name Role Phone Fabby Elian Unavailable PROBLEMS Type Condition ICD9-CM Code [id number] Code Onset Dates Condition S tatus W/U Status Risk SNOMED Code Notes Problem Scoliosis of thoracic spine, unspecified scoliosis type M41.9 Active confirmed 474021980 Problem Supervision of other normal Z34.80 Ac tive confirm 930406336 Problem Renal stones N20.0 Active confirmed 8664805 7 Problem Chronic fatigue R53.82 Active confirmed 8422 9001 ALLERGIES No Known Allergies ENCOUNTERS from 1992 to 2021-07-04 Encounter Location Date Provider Diagnosis [facility] [address] [place] [address] [place] [address] Jun, Elian Sequeira Encounter for pregna ncy related examination in first trimester Z34.91 IMMUNIZATIONS Vaccine Route Administration Date Status Meningococcal [...] Education Language: Question Answer Notes Languages spoken: Irish Yazidi: Question Answer Notes Yazidi 33 None Sexual Hx: Question Answer Notes [...] Information RESULTS No Results REASON FOR VISIT No Information MEDICAL (GENERAL) HISTORY Type Description Date Medical [...] No Information FUNCTIONAL STATUS No Information ASSESSMENTS Encounter Date Diagnosis Assessment Notes Treatment Notes Treatm ent Clinical Notes Jun, Encounter for rela shagufta examination in first trimester (ICD-10 - Z34.91) PLAN OF TREATMENT Medication Medication Name Sig Start Date Stop Date Ondansetron 4 MG 1 tablet on the tongue and a llow to dissolve Orally every 8 hours as needed for 30 day(s) Jun, Pending Tests Test Name Order Date Glucose Challenge Test 1 Hour 2021-07-04 Next Appt Details Provider Name:Mitzy Saba Ferreira, 2021-07-10 0 2:40:00 PM, [address] [facility], , [place], [address], Provider Name:Pina Rooney, 2021-07-17 5 02:00:00 PM, [address] [facility], , [place], [address], Provider Name:Kulwinder Doe, 09:00:00 AM, [address] [place] [address], , [place], [address], Insurance Providers Payer Name Payer Address Payer Phone Insured Name Patient Relati onship to Insured Coverage Start Date Coverage End Date [facility] COMM[facility] [address] [facility] [address] ESTER SHAH self
--- OUTSIDE RECORDS SUMMARY | 2021-07-17 06:23 | CCD ---
Author Author [facility] Organization [facility] Address Unknown Phone Unavailable Care Team Providers Care Program Assistant Name Role Phone Saida Frankel Unavailable PROBLEMS Type Condition ICD9-CM Code [id number] Code Onset Dates Condition S tatus W/U Status Risk SNOMED Code Notes Problem Chronic fatigue R53.82 Active confirmed 8422 9001 Problem Scoliosis of thoracic spine, unspecified scoliosis type M41.9 Active confirmed 116547758 Problem Renal stones N20.0 Active confirmed 2902392 7 ALLERGIES No Known Allergies ENCOUNTERS from 1992 to 2021-06-10 Encounter Location Date Provider Diagnosis [facility] Care [address] [place] [address] [place] [address] May, Saida Frankel Dysuria R30.0 IMMUNIZATIONS Vaccine Route Administration Date Status Meningococcal [...] Education Language: Question Answer Notes Languages spoken: Korean Tenriism: Question Answer Notes Tenriism 33 None Sexual Hx: Question Answer Notes [...] Notes Start Da te End Date Status Vitamin 27-0.8 MG 1 tablet Orally Once a day Active Reglan 10 MG 1 tablet before meals Orally Twice a day as needed for nausea for 30 day(s) May, Active PROCEDURES No Information RESULTS Component Value Reference Range Urinalysis, Complete with Micro Reviewed date:06/10/2021 11:39:17 Interpretation:Normal Performing Lab:[facility] [place] [address] Microscopic Examination Urine-Color Appearance Clear Specific Dewey 1.005 pH 8 Glucose - Protein - Occult Blood Bilirubin - Urobilinogen,Semi-Qn - Nitrite, Urine - Ketones - WBC Esterase Urinalysis Gross Exam Microscopic Examination REASON FOR VISIT UTI? Nausea MEDICAL (GENERAL) HISTORY Type Description Date Medical [...] Notes Treatment Notes Treatm ent Clinical Notes May, Dysuria (ICD-10 - R30.0) PLAN OF TREATMENT Medication Medication Name Sig Start Date Stop Date Reglan 10 MG 1 tablet before meals Orally Twice a day as needed for nausea for 30 day(s) May, Treatment Notes Test Name Order Date URINE CULTURE 2021-06-10 Next Appt Details Provider Name:Mitzy Ferreira, 2021-06-25 0 9:40:00 AM, [address] [facility], , [place], [address], Provider Name:Kulwinder Doe, 2022-09- 23 09:00:00 AM, [address] , , [place], [address], Insurance Providers Payer Name Payer Address Payer Phone Insured Name Patient Relati onship to Insured Coverage Start Date Coverage End Date [facility] COMMUNITY PLAN [facility] [address] [facility] [address] ESTER SHAH self
--- OUTSIDE RECORDS SUMMARY | 2021-07-17 06:23 | CCD ---
Author Author [facility] Organization [facility] Address Unknown Phone Unavailable Care Team Providers Care Payroll Administrator Name Role Phone Toribio Pina Unavailable PROBLEMS Type Condition ICD9-CM Code [id number] Code Onset Dates Condition S tatus W/U Status Risk SNOMED Code Notes Problem Scoliosis of thoracic spine, unspecified scoliosis type M41.9 Active confirmed 670599877 Problem Supervision of other normal Z34.80 Ac tive confirm 864982521 Problem Renal stones N20.0 Active confirmed 8036900 7 Problem Chronic fatigue R53.82 Active confirmed 8422 9001 ALLERGIES No Known Allergies ENCOUNTERS from 1992 to 2021-07-05 Encounter Location Date Provider Diagnosis [facility] Women's Wellness and Breast Care [address] [place] [address] [place] [address] 16 Jun, 2021 Pina Rooney Supervision of pregn grace with other poor reproductive or obstetric history, first trimester O09.291 ; 10 weeks gestation of Z3A.10 ; Other specified postprocedural states Z98.890 ; History of cervical incompetence Z87.42 and Encounter for immunization Z23 IMMUNIZATIONS Vaccine Route Administration Date Status Meningococcal [...] Education Language: Question Answer Notes Languages spoken: Wolof Rastafarian: Question Answer Notes Rastafarian 33 None Sexual Hx: Question Answer Notes [...] REASON FOR REFERRAL No Information VITAL SIGNS Weight 146 lbs Jun, Weight-kg 66.22 kg Jun, Height 57.5 in Jun, BMI 31.04 kg/m2 Jun, Blood pressure systolic 112 mm Hg Jun, Blood pressure diastolic 74 mm Hg Jun, MEDICATIONS Medication SIG (Take, Route, Frequency, Duration) [...] for 30 day(s) Jun, Ac tive PROCEDURES from 1992 to 2021-07-05 Procedure Date Ordered Result Body Site Imm: Fluzone 6mo & older 0.5mL IM Influenza 2021-07-02 N/A RESULTS No Results REASON FOR VISIT 1ST PN (R/S FROM 06/25 DUE TO COVID EXPOSURE) MEDICAL (GENERAL) HISTORY Type Description Date Medical [...] Treatment Notes Treatm ent Clinical Notes Jun, Supervision of wit h other poor reproductive or obstetric history, first trimester (ICD-10 - O09.291) Jun, 10 weeks gestation of (ICD-10 - Z3A.10 ) Jun, Other specified postprocedural states (ICD-10 - Z98.890) Jun, History of cervical incompetence (ICD-10 - Z87.4 2) Jun, Encounter for immunization (ICD-10 - Z23) PLAN OF TREATMENT Medication Medication Name Sig Start Date Stop Date Ondansetron 4 MG 1 tablet on the tongue and a llow to dissolve Orally every 8 hours as needed for 30 day(s) Jun, Pending Tests Test Name Order Date Type and Screen Prenatal1 2021-07-02 CBC - Complete Blood Count 2021-07-02 CBC with Differential 2021-07-02 CHLAMYDIA and GC DNA AMPLIFICAT 2021-07-02 HEPATITIS C ANTIBODY INDEX 2021-07-02 HIV 1and2 SCREEN CENTAUR 2021-07-02 SYPHILIS (RPR SCREEN) 2021-07-02 RUBELLA IMMUNE STATUS IgG 2021-07-02 URINE CULTURE 2021-07-02 HBSAG 2021-07-02 Next Appt Details 4 Weeks Reason: Provider Name:Mitzy Saba Monrealn, 2021-07-10 0 2:40:00 PM, [address] [facility], , [place], [address], Provider Name:Pina Rooney, 2021-07-17 5 02:00:00 PM, [address] [facility], , [place], [address], Provider Name:Kulwinder Doe, 09:00:00 AM, [address] [place] [address], , [place], [address], Follow Up:4 WeeksPrenatal Insurance Providers Payer Name Payer Address Payer Phone Insured Name Patient Relati onship to Insured Coverage Start Date Coverage End Date [employer] [facility] [address] [facility] [phone] ESTER SHAH self
--- OUTSIDE RECORDS SUMMARY | 2021-07-17 06:23 | CCD ---
Author Author [facility] Organization [facility] Address Unknown Phone Unavailable Care Team Providers Care Geologist Petroleum Name Role Phone Pina Rooney Unavailable PROBLEMS Type Condition ICD9-CM Code WLP36-IZ Code Onset Dates Condition S tatus W/U Status Risk SNOMED Code Notes Problem Scoliosis of thoracic spine, unspecified scoliosis type M41.9 Active confirmed 036850420 Problem Supervision of other normal Z34.80 Ac tive confirm 847616371 Problem Renal stones N20.0 Active confirmed 6470182 7 Problem Chronic fatigue R53.82 Active confirmed 8422 9001 ALLERGIES No Known Allergies ENCOUNTERS from 1992 to 2021-07-02 Encounter Location Date Provider Diagnosis [facility] Women's Wellness and Breast Care [address] [place] [address] [place] [address] 16 Jun, 2021 Pina Karymarian IMMUNIZATIONS Vaccine Route Administration Date Status Meningococcal [...] Education Language: Question Answer Notes Languages spoken: Panamanian Congregational: Question Answer Notes Congregational 33 None Sexual Hx: Question Answer Notes [...] day(s) Jun, Next Appt Details Provider Name:Mitzy Ferreira, 2021-07-10 0 2:40:00 PM, [address] [facility] [phone], [place], [address], Provider Name:Pina Rooney, 2021-07-17 5 02:00:00 PM, [address] [facility] [phone], [place], [address], Provider Name:Kulwinder Doe, 09:00:00 AM, [address] , , [place], [address], Insurance Providers Payer Name Payer Address Payer Phone Insured Name Patient Relati onship to Insured Coverage Start Date Coverage End Date [facility] [address] [facility] [phone] ESTER SHAH self
--- OUTSIDE RECORDS SUMMARY | 2021-07-17 06:23 | CCD ---
Author Author [facility] Organization [facility] Address Unknown Phone Unavailable Care Team Providers Care Adviser Sales Name Role Phone Mitzy Ferreira Unavailable PROBLEMS Type Condition ICD9-CM Code [id number] Code Onset Dates Condition S tatus W/U Status Risk SNOMED Code Notes Problem Scoliosis of thoracic spine, unspecified scoliosis type M41.9 Active confirmed 154957799 Problem Supervision of other normal Z34.80 Ac tive confirm 731537239 Problem Renal stones N20.0 Active confirmed 6908697 7 Problem Chronic fatigue R53.82 Active confirmed 8422 9001 ALLERGIES No Known Allergies ENCOUNTERS from 1992 to 2021-07-14 Encounter Location Date Provider Diagnosis [facility] Women[facility] Wellness and Breast Care [address] [place] [address] [place] [address] 24 Jun, 2021 Mitzy Ferreira Encounter for superv ision of other normal in first trimester Z34.81 ; 12 weeks gestation of Z3A.12 and History of cervical incompetence Z87.42 IMMUNIZATIONS Vaccine Route Administration Date Status Meningococcal [...] Education Language: Question Answer Notes Languages spoken: Greenlandic Buddhism: Question Answer Notes Buddhism 33 None Drug and Alcohol Question Answer [...] FOR REFERRAL No Information VITAL SIGNS Weight 146.8 lbs Jun, Weight-kg 66.59 kg Jun, Height 57.5 in Jun, BMI 31.217 kg/m2 Jun, Blood pressure systolic 112 mm Hg Jun, Blood pressure diastolic 70 mm Hg Jun, MEDICATIONS Medication SIG (Take, [...] Information RESULTS No Results REASON FOR VISIT PRE OP SURG 07/17/21 MEDICAL (GENERAL) HISTORY Type Description Date Medical [...] Treatment Notes Treatm ent Clinical Notes Jun, 12 weeks gestation of (ICD-10 - Z3A.12 ) Jun, Encounter for supervision of other normal in first trimester (ICD-10 - Z34.81) Jun, History of cervical incompetence (ICD-10 - Z87.4 2) Pre-Operative CounselingProcedure: Annita cervical cerclageSurgeon: Mitzy Ferreira MD Patient has been counseling regarding the risks of the procedure to include anesthesia risks to include , bleeding/need for blood transfusion, infection, damage to internal organs, postoperative pain and need for future surgery based on findings. She understands these risks and wishes to proceed with the above procedures. PLAN OF TREATMENT Treatment Notes Assessment Notes Clinical Notes History of cervical incompetence Pre-Ope rative CounselingProcedure: Annita cervical cerclageSurgeon: ISRAEL Legeratient has been counseling regarding the risks of the procedure to include anesthesia risks to include , bleedin g/need for blood transfusion, infection, damage to internal organs, postoperative pain and need for future surgery based on findings. She understands these risks and wishes to proceed with the above procedures. Next Appt Details 3 Weeks Reason: Provider Name:Mitzy Ferreira, 2021-07-17 0 7:30:00 AM, [address] [place] [address], , [place], [address], Provider Name:Pina Rooney, 2021-07-17 5 02:00:00 PM, [address] [facility], , [place], [address], Provider Name:Kulwinder Doe, 09:00:00 AM, [address] [place] [address], , [place], [address], Insurance Providers Payer Name Payer Address Payer Phone Insured Name Patient Relati onship to Insured Coverage Start Date Coverage End Date [facility] COMM[facility]AN [facility] [address] [facility] [phone] ESTER SHAH self
--- OUTSIDE RECORDS SUMMARY | 2021-07-17 06:24 | CCD ---
Author Author [facility] Organization [facility] Address Unknown Phone Unavailable Care Team Providers Care Wallpaper Hanger Helper Name Role Phone Kulwinder Doe Unavailable PROBLEMS Type Condition ICD9-CM Code ZCD78-YQ Code Onset Dates Condition S tatus W/U Status Risk SNOMED Code Notes Problem Chronic fatigue R53.82 Active confirmed 8422 9001 Problem Scoliosis of thoracic spine, unspecified scoliosis type M41.9 Active confirmed 284901630 Problem Renal stones N20.0 Active confirmed 0143048 7 ALLERGIES No Known Allergies ENCOUNTERS from 1992 to 2021-05-10 Encounter Location Date Provider Diagnosis [address] [phone] [place] [address] Apr, Kulwinder Doe Adult general medical examination Z00.00 ; Scoliosis of thoracic spine, unspecified scoliosis type M41.9 and Hx of renal calculi Z87.442 IMMUNIZATIONS Vaccine Route Administration Date Status Meningococcal [...] Education Language: Question Answer Notes Languages spoken: Lao Buddhism: Question Answer Notes Buddhism 33 None Sexual Hx: Question Answer Notes [...] FOR REFERRAL No Information VITAL SIGNS Weight 149.4 lbs Apr, Weight-kg 67.77 kg Apr, Height 57.5 in Apr, BMI 31.77 kg/m2 Apr, Heart Rate 91 /min Apr, Respiratory Rate 16 /min Apr, Temperature 96.8 degrees Fahrenheit Apr, Oximetry 100ra Apr, Blood pressure systolic 111 mm Hg Apr, Blood pressure diastolic 72 mm Hg Apr, MEDICATIONS Medication SIG (Take, Route, Frequency, Duration) Notes Start Da te End Date Status Vitamin 27-0.8 MG 1 tablet Orally Once a day Active PROCEDURES No Information RESULTS No Results REASON FOR VISIT yearly visit MEDICAL (GENERAL) HISTORY Type Description Date Medical [...] Notes Treatment Notes Treatm ent Clinical Notes Apr, Adult general medical examination (ICD-10 - Z00. 00) She is up to date with imms and follows with Metal Hanging Helper as well. Will follow every 1-2 years. Pt is agreeable. Apr, Scoliosis of thoracic spine, unspecified scoliosis type (ICD-10 - M41.9) Consider repeat xray but she is asymptomatic so will just monitor for now. Apr, Hx of renal calculi (ICD-10 - Z87.442) Cont with Urology. PLAN OF TREATMENT Treatment Notes Assessment Notes Clinical Notes Adult general medical examination She is up to date with imms and follows with Metal Hanging Helper as well. Will follow every 1-2 years. Pt is agreeable. Scoliosis of thoracic spine, unspecified scoliosis type Consider repeat xray but she is asymptomatic so will just monitor for now. Hx of renal calculi Cont with Urology. Next Appt Details 1 Year Reason:Annual visit Provider Name:Mitzy Ferreira, 2021-06-14 1 0:00:00 AM, [address] [facility], , [place], [address], Provider Name:Kulwinder Doe, 09:00:00 AM, [address] [facility], , [place], [address], Follow Up:1 YearAnnual visit Insurance Providers Payer Name Payer Address Payer Phone Insured Name Patient Relati onship to Insured Coverage Start Date Coverage End Date [facility] COMMUN[facility] PLAN [facility] [address] [facility] [phone] ESTER SHAH self
--- OUTSIDE RECORDS SUMMARY | 2021-07-17 06:24 | CCD ---
Author Author [facility] Organization [facility] Address Unknown Phone Unavailable Care Team Providers Care Blocker Metal Base Name Role Phone Crow, Karla SCIENCE WRITER Unavailable Unavailable Crow, Karla SCIENCE WRITER Unavailable Unavailable Crow, Karla SCIENCE WRITER Unavailable Unavailable Crow, Karla SCIENCE WRITER Unavailable Unavailable Crow, Karla SCIENCE WRITER Unavailable Unavailable Crow, Karla SCIENCE WRITER Unavailable Unavailable Crow, Karla SCIENCE WRITER Unavailable Unavailable Crow, Karla SCIENCE WRITER Unavailable Unavailable Crow, Karla SCIENCE WRITER Unavailable Unavailable Crow, Karla SCIENCE WRITER Unavailable Unavailable Crow, Karla SCIENCE WRITER Unavailable Unavailable Crow, Karla SCIENCE WRITER Unavailable Unavailable Crow, Karla SCIENCE WRITER Unavailable Unavailable Crow, Karla SCIENCE WRITER Unavailable Unavailable Crow, Karla SCIENCE WRITER Unavailable Unavailable Crow, Karla SCIENCE WRITER Unavailable Unavailable Crow, Karla SCIENCE WRITER Unavailable Unavailable Crow, Karla SCIENCE WRITER Unavailable Unavailable Crow, Karla SCIENCE WRITER Unavailable Unavailable Crow, Karla SCIENCE WRITER Unavailable Unavailable Crow, Karla SCIENCE WRITER Unavailable Unavailable Crow, Karla SCIENCE WRITER Unavailable Unavailable Crow, Karla SCIENCE WRITER Unavailable Unavailable Crow, Karla SCIENCE WRITER Unavailable Unavailable Crow, Karla SCIENCE WRITER Unavailable Unavailable Crow, Karla SCIENCE WRITER Unavailable Unavailable Crow, Karla SCIENCE WRITER Unavailable Unavailable Crow, Karla SCIENCE WRITER Unavailable Unavailable Crow, Karla SCIENCE WRITER Unavailable Unavailable Crow, Karla SCIENCE WRITER Unavailable Unavailable Crow, Karla SCIENCE WRITER Unavailable Unavailable Crow, Karla SCIENCE WRITER Unavailable Unavailable Crow, Karla SCIENCE WRITER Unavailable Unavailable Crow, Karla SCIENCE WRITER Unavailable Unavailable Crow, Karla SCIENCE WRITER Unavailable Unavailable Crow, Karla SCIENCE WRITER Unavailable Unavailable Crow, Karla SCIENCE WRITER Unavailable Unavailable Crow, Karla SCIENCE WRITER Unavailable Unavailable Crow, Karla SCIENCE WRITER Unavailable Unavailable Crow, Karla SCIENCE WRITER Unavailable Unavailable Crow, Karla SCIENCE WRITER Unavailable Unavailable Crow, Karla SCIENCE WRITER Unavailable Unavailable Crow, Karla SCIENCE WRITER Unavailable Unavailable Crow, Karla SCIENCE WRITER Unavailable Unavailable Crow, Karla SCIENCE WRITER Unavailable Unavailable Crow, Karla SCIENCE WRITER Unavailable Unavailable Crow, Karla SCIENCE WRITER Unavailable Unavailable Crow, Karla SCIENCE WRITER Unavailable Unavailable SYMENOW, G CHRISTOPHER PA Unavailable Unavailable SYMENOW, G CHRISTOPHER PA Unavailable Unavailable SYMENOW, G CHRISTOPHER PA Unavailable Unavailable SYMENOW, G CHRISTOPHER PA Unavailable Unavailable SYMENOW, G CHRISTOPHER PA Unavailable Unavailable SYMENOW, G CHRISTOPHER PA Unavailable Unavailable SYMENOW, G CHRISTOPHER PA Unavailable Unavailable SYMENOW, G CHRISTOPHER PA Unavailable Unavailable SYMENOW, G CHRISTOPHER PA Unavailable Unavailable SYMENOW, G CHRISTOPHER PA Unavailable Unavailable SYMENOW, G CHRISTOPHER PA Unavailable Unavailable SYMENOW, G CHRISTOPHER PA Unavailable Unavailable SYMENOW, G CHRISTOPHER PA Unavailable Unavailable SYMENOW, G CHRISTOPHER PA Unavailable Unavailable SYMENOW, G CHRISTOPHER PA Unavailable Unavailable SYMENOW, G CHRISTOPHER PA Unavailable Unavailable HUIZENGAAdan DO Unavailable Unavailable HUIZENGAAdan DO Unavailable Unavailable HUIZENGAAdan DO Unavailable Unavailable HUIZENGAAdan DO Unavailable Unavailable HUIZENGAAdan DO Unavailable Unavailable HUIZENGAAdan DO Unavailable Unavailable HUIZENGAAdan DO Unavailable Unavailable HUIZENGAAdan DO Unavailable Unavailable HUIZENGAAdan DO Unavailable Unavailable HUIZENGAAdan DO Unavailable Unavailable HUIZENGAAdan DO Unavailable Unavailable HUIZENGAAdan DO Unavailable Unavailable HUIZENGA D NUBIA DO Unavailable Unavailable HUIZENGAAdan DO Unavailable Unavailable HUIZENGAAdan DO Unavailable Unavailable HUIZENGAAdan DO Unavailable Unavailable HUIZENGA D NUBIA DO Unavailable Unavailable HUIZENGA D NUBIA DO Unavailable Unavailable HUIZENGA D NUBIA DO Unavailable Unavailable HUIZENGA Adan DELACRUZ DO Unavailable Unavailable HUIZENGA, Adan DELACRUZ DO Unavailable Unavailable HUIZENGA, Adan DELACRUZ DO Unavailable Unavailable HUIZENGA, Adan DELACRUZ DO Unavailable Unavailable HUIZENGA, Adan DELACRUZ DO Unavailable Unavailable HUIZENGA, Adan DELACRUZ DO Unavailable Unavailable HUIZENGA, Adan DELACRUZ DO Unavailable Unavailable HUIZENGA, Adan DELACRUZ DO Unavailable Unavailable HUIZENGA, Adan DELACRUZ DO Unavailable Unavailable HUIZENGA, Adan DELACRUZ DO Unavailable Unavailable HUIZENGA, Adan DELACRUZ DO Unavailable Unavailable HUIZENGA, Adan DELACRUZ DO Unavailable Unavailable HUIZENGA, Adan DELACRUZ DO Unavailable Unavailable HUIZENGA, Adan DELACRUZ DO Unavailable Unavailable HUIZENGA, Adan DELACRUZ DO Unavailable Unavailable HUIZENGA, Adan DELACRUZ DO Unavailable Unavailable HUIZENGA, Adan DELACRUZ DO Unavailable Unavailable HUIZENGA, Adan DELACRUZ DO Unavailable Unavailable HUIZENGA, Adan DELACRUZ DO Unavailable Unavailable HUIZENGA, Adan DELACRUZ DO Unavailable Unavailable HUIZENGA, Adan DELACRUZ DO Unavailable Unavailable HUIZENGA, Adan DELACRUZ DO Unavailable Unavailable HUIZENGA, Adan DELACRUZ DO Unavailable Unavailable HUIZENGA, Adan DELACRUZ DO Unavailable Unavailable HUIZENGA, Adan DELACRUZ DO Unavailable Unavailable HUIZENGA, Adan DELACRUZ DO Unavailable Unavailable HUIZENGA, Adan DELACRUZ DO Unavailable Unavailable HUIZENGA, Adan DELACRUZ DO Unavailable Unavailable HUIZENGA, Adan DELACRUZ DO Unavailable Unavailable HUIZENGA, Adan DELACRUZ DO Unavailable Unavailable HUIZENGA, Adan DELACRUZ DO Unavailable Unavailable HUIZENGA, Adan DELACRUZ DO Unavailable Unavailable HUIZENGA, Adan DELACRUZ DO Unavailable Unavailable HUIZENGA, Adan DELACRUZ DO Unavailable Unavailable HUIZENGA, Adan DELACRUZ DO Unavailable Unavailable HUIZENGA, Adan DELACRUZ DO Unavailable Unavailable HUIZENGA, Adan DELACRUZ DO Unavailable Unavailable HUIZENGA, Adan DELACRUZ DO Unavailable Unavailable HUIZENGA, Adan DELACRUZ DO Unavailable Unavailable HUIZENGA, Adan DELACRUZ DO Unavailable Unavailable HUIZENGA, Adan DELACRUZ DO Unavailable Unavailable HUIZENGA, Adan DELACRUZ DO Unavailable Unavailable HUIZENGA, Adan DELACRUZ DO Unavailable Unavailable HUIZENGA, Adan DELACRUZ DO Unavailable Unavailable HUIZENGA, Adan DELACRUZ DO Unavailable Unavailable HUIZENGA, D NUBIA DO Unavailable Unavailable HUIZENGA, D NUBIA DO Unavailable Unavailable HUIZENGA, D NUBIA DO Unavailable Unavailable HUIZENGA, D NUBIA DO Unavailable Unavailable HUIZENGA, D NUBIA DO Unavailable Unavailable HUIZENGA, D NUBIA DO Unavailable Unavailable HUIZENGA, D NUBIA DO Unavailable Unavailable HUIZENGA, D NUBIA DO Unavailable Unavailable HUIZENGA, D NUBIA DO Unavailable Unavailable HUIZENGA, D NUBIA DO Unavailable Unavailable HUIZENGA, D NUBIA DO Unavailable Unavailable HUIZENGA, D NUBIA DO Unavailable Unavailable HUIZENGA, D NUBIA DO Unavailable Unavailable Re-disclosure Warning The records that you are about to access may contain information from federally-assisted alcohol or drug abuse programs. If such information is present, then the following federally mandated warning applies: This information has been disclosed to you from records protected by federal confidentiality rules (42 CFR part 2). The federal rules prohibit you from making any further disclosure of this information unless further disclosure is expressly permitted by the written consent of the person to whom it pertains or as otherwise permitted by 42 CFR part 2. A general authorization for the release of medical or other information is NOT sufficient for this purpose. The Federal rules restrict any use of the information to criminally investigate or prosecute any alcohol or drug abuse patient.The records that you are about to access may contain highly sensitive health information, the redisclosure of which is protected by Article 27-F of the [facility] Public Health law. If you continue you may have access to information: Regarding HIV / AIDS; Provided by facilities licensed or operated by the [facility] Office of Mental Health; or Provided by the [facility] Office for People With Developmental Disabilities. If such information is present, then the following [facility] mandated warning applies: This information has been disclosed to you from confidential records which are protected by state law. State law prohibits you from making any further disclosure of this information without the specific written consent of the person to whom it pertains, or as otherwise permitted by law. Any unauthorized further disclosure in violation of state law may result in a fine or nursing home sentence or both. A general authorization for the release of medical or other information is NOT sufficient authorization for further disc losure. Encounters Encounter Providers Location Date Indications Data Source(s ) Unknown [address] [facility] [place] [address] 07/10/2021 12:00:00 AM EST eCW1 ([facility]) ( ESTOB) [facility] [place] [address] [place] [address] 07/10/2021 12:00:00 AM EST eCW1 ([facility]) [place] [address] [facility] [address] 07/05/2021 12:00:00 AM EST eCW1 ([facility]) Unknown [address] [facility] [address] 07/04/2021 12:00:00 AM EST eCW1 ([facility]) ( ESTOB) [facility] [address] [place] [address] 07/02/2021 12:00:00 AM EST eCW1 ([facility]) [place] [address] [facility] [address] 07/02/2021 12:00:00 AM EST eCW1 ([facility]) Unknown [address] [facility] [address] 06/10/2021 12:00:00 AM EDT eCW1 ([facility]) Outpatient [address] [facility] [address] 05/09/2021 12:00:00 AM EDT eCW1 [facility] Outpatient Attender: Karla SR 03/03/2014 07:28:00 PM [facility] Inpatient Attender: JUS PIEDRA PAAdmitter: NUBIA WILEY DO 12/21/2012 04:34:00 PM EDT - 12/22/2012 09:20:00 AM [facility] Immunizations Vaccine Date Status Description Data Source(s) New in 2011. IIV4 07/02/2021 01:57:00 PM EST completed eCW1 ([facility]) New in 2011. IIV4 07/02/2021 01:57:00 PM EST completed eCW1 ([facility]) New in 2011. IIV4 07/02/2021 01:57:00 PM EST completed eCW1 ([facility]) New in 2011. IIV4 07/02/2021 01:57:00 PM EST completed eCW1 ([facility]) New in 2011. IIV4 07/02/2021 01:57:00 PM EST completed eCW1 ([facility]) New in 2011. IIV4 07/02/2021 01:57:00 PM EST completed eCW1 ([facility]) Medications Medication Brand Name Start Date Product Form Dose Route Admi nistrative Instructions Pharmacy Instructions Status Indications Reaction Description Data Source(s) Ondansetron 4 MG Disintegrating Oral Tablet Ondansetron 4 MG 07/02/2021 12:00:00 AM EST 1.0 {tablet_on_the_tongue_and_allow_to_dissolve} active Ondansetron 4 MG eCW1 ([facility]) Ondansetron 4 MG Disintegrating Oral Tablet Ondansetron 4 MG 07/02/2021 12:00:00 AM EST 1.0 {tablet_on_the_tongue_and_allow_to_dissolve} active Ondansetron 4 MG eCW1 ([facility]) Ondansetron 4 MG Disintegrating Oral Tablet Ondansetron 4 MG 07/02/2021 12:00:00 AM EST 1.0 {tablet_on_the_tongue_and_allow_to_dissolve} active Ondansetron 4 MG eCW1 ([facility]) Ondansetron 4 MG Disintegrating Oral Tablet Ondansetron 4 MG 07/02/2021 12:00:00 AM EST 1.0 {tablet_on_the_tongue_and_allow_to_dissolve} active Ondansetron 4 MG eCW1 ([facility]) Ondansetron 4 MG Disintegrating Oral Tablet ONDANSETRON 07/02/2021 12:00:00 AM EST tablet,disintegrating 30 DISSOLVE O NE TABLET ON TONGUE EVERY 8 HOURS NEEDED DISSOLVE ONE TABLET ON TONGUE EVERY 8 HOURS NEEDED SOLD: 06/17 [facility] Ondansetron 4 MG Disintegrating Oral Tablet Ondansetron 4 MG 07/02/2021 12:00:00 AM EST 1.0 {tablet_on_the_tongue_and_allow_to_dissolve} active Ondansetron 4 MG eCW1 ([facility]) Ondansetron 4 MG Disintegrating Oral Tablet Ondansetron 4 MG 07/02/2021 12:00:00 AM EST 1.0 {tablet_on_the_tongue_and_allow_to_dissolve} active Ondansetron 4 MG eCW1 ([facility]) Ondansetron 4 MG Oral Tablet [Zofran] Zofran 4 MG Zofran 4 M G 06/17/2021 12:00:00 AM EDT 1.0 {tablet} active Zo óscar 4 MG eCW1 ([facility]) Ondansetron 4 MG Oral Tablet [Zofran] Zofran 4 MG Zofran 4 M G 06/17/2021 12:00:00 AM EDT 1.0 {tablet} suspended Zofran 4 MG eCW1 ([facility]) 4 mg 06/17/2021 12:00:00 AM EDT tablet 30 TAKE ONE TABLET BY MOUTH EVERY 8 HOURS NEEDED FOR NAUSEA TAKE ONE TABLET BY MOUTH EVERY 8 HOURS A S NEEDED FOR NAUSEA SOLD: 06/17/2021 [facility] Ondansetron 4 MG Oral Tablet [Zofran] Zofran 4 MG Zofran 4 M G 06/17/2021 12:00:00 AM EDT 1.0 {tablet} suspended Zofran 4 MG eCW1 ([facility]) Ondansetron 4 MG Oral Tablet [Zofran] Zofran 4 MG Zofran 4 M G 06/17/2021 12:00:00 AM EDT 1.0 {tablet} active Zo óscar 4 MG eCW1 ([facility]) Ondansetron 4 MG Oral Tablet [Zofran] Zofran 4 MG Zofran 4 M G 06/17/2021 12:00:00 AM EDT 1.0 {tablet} active Zo óscar 4 MG eCW1 ([facility]) Ondansetron 4 MG Oral Tablet [Zofran] Zofran 4 MG Zofran 4 M G 06/17/2021 12:00:00 AM EDT 1.0 {tablet} active Zo óscar 4 MG eCW1 ([facility]) 10 mg 06/10/2021 12:00:00 AM EDT tablet 60 TAKE ONE TABLET BY MOUTH TWICE A DAY BEFORE MEALS NEEDED FOR NAUSEA TAKE ONE TABLET BY MOUTH TWICE A DAY BEFORE MEALS NEEDED FOR NAUSEA SOLD: 06/11/2021 [facility] Metoclopramide 10 MG Oral Tablet [Reglan] Reglan 10 MG Patricia n 10 MG 06/10/2021 12:00:00 AM EDT 1.0 {tablet_before_meals} active Reglan 10 MG eCW1 ([facility]) Metoclopramide 10 MG Oral Tablet [Reglan] Reglan 10 MG Patricia n 10 MG 06/10/2021 12:00:00 AM EDT 1.0 {tablet_before_meals} active Reglan 10 MG eCW1 ([facility]) Metoclopramide 10 MG Oral Tablet [Reglan] Reglan 10 MG Patricia n 10 MG 06/10/2021 12:00:00 AM EDT 1.0 {tablet_before_meals} suspended Reglan 10 MG eCW1 ([facility]) Metoclopramide 10 MG Oral Tablet [Reglan] Reglan 10 MG Patricia n 10 MG 06/10/2021 12:00:00 AM EDT 1.0 {tablet_before_meals} suspended Reglan 10 MG eCW1 ([facility]) Metoclopramide 10 MG Oral Tablet [Reglan] Reglan 10 MG Patricia n 10 MG 06/10/2021 12:00:00 AM EDT 1.0 {tablet_before_meals} active Reglan 10 MG eCW1 ([facility]) Metoclopramide 10 MG Oral Tablet [Reglan] Reglan 10 MG Patricia n 10 MG 06/10/2021 12:00:00 AM EDT 1.0 {tablet_before_meals} active Reglan 10 MG eCW1 ([facility]) Metoclopramide 10 MG Oral Tablet [Reglan] Reglan 10 MG Patricia n 10 MG 06/10/2021 12:00:00 AM EDT 1.0 {tablet_before_meals} active Reglan 10 MG eCW1 ([facility]) Insurance Providers Payer name Policy type / Coverage type Policy ID Covered green party ID Covered green party's relationship to molina Policy Molina Plan Information MEDICAID [id number] SP [id number] [facility] MED[facility] [id number] S [id number] UN COMMUNITY PLAN MCDO [id number] SP [id number] [facility] [id number] CHILD [id number] BCBS EMPIRE [id number] CHILD [id number] UN COMMUNITY PLAN MCDO [id number] SP [id number] [facility] MEDICAID [id number] S [id number] [facility] PLAN [facility] [id number] SP [id number] [facility] [id number] [facility] [id number] [facility] [id number] [facility] [id number] [facility] [id number] [facility] [id number] [facility] [id number] [facility] MEDICAID [id number] S [id number] SELF PAY ONLY [id number] SP [id number] [place]ICAID [id number] SP [id number] [facility] Health Maintenance Organization (O) [id number] Self [id number] MEDICAID [id number] [facility] [id number] S [id number] BCBS EMPIRE ELOISA DIV [id number] FA2 [id number] UNITED HEALTHCARE [id number] FA2 [id number] BCBS EMPIRE ELOISA DIV [id number] FA2 [id number] UNITED HEALTHCARE [id number] FA2 [id number] Medicaid [facility] Part B [id number] Self [id number] [facility] Health Maintenance Organization [place] [id number] Family Dependent [id number] Medicaid [facility] Part B [id number] Self [id number] [facility] Health Maintenance Organization (O) [id number] Family Dependent [id number] BCBS EMPIRE ELOISA DIV [id number] FA2 [id number] MEDICAID [id number] SP [id number] MEDICAID M [id number] S [id number] [facility] O [id number] C [id number] MEDICAID [id number] SP [id number] [facility] Health Maintenance Organization (HMO) [id number] Family Dependent UNITED HEALTHCARE [id number] FA2 [id number] BCBS EMPIRE ELOISA DIV [id number] FA2 [id number] UN COMMUNITY PLAN [facility] [id number] SP [id number] [facility] [id number] Problems, Conditions, and Diagnoses Code Display Name Description Problem Type Effective Dates Data Source(s) Z34.80 care Supervision of other normal Kristina collins 07/02/2021 12:00:00 AM EST eCW1 ([facility]) Surgeries/Procedures Procedure Description Date Indications Data Source(s) INFLUENZA VIRUS VACC SPLIT PRSRV FREE 3 YRS/> IM 07/02 12:00:00 AM EST eCW1 ([facility]) Results ID Date Data Source [id number] 07/13/2021 11:40:00 AM EST [facility] Name Value Range Interpretation Code Description Data Brynn rce(s) Supporting Document(s) SARS-CoV-2 (COVID-19) RNA [Presence] in Respiratory specimen by [facility] with probe detection Not Detected [facility] This lab was ordered by [facility] and reported by [employer]. ID Date Data Source Urinalysis, Complete with Micro 06/10/2021 12:00:00 AM EDT e CW1 ([facility]) Name Value Range Interpretation Code Description Data Brynn rce(s) Supporting Document(s) Microscopic Examination eCW1 ( [facility]) Specific gravity of Urine 1.005 Specific G ravity eCW1 ([facility]) Appearance of Urine Clear Appearance eCW1 ([facility]) Urine-Color eCW1 ([facility]) Glucose [Presence] in Urine - Glucose eC W1 ([facility]) pH of Urine by Test strip 8 pH eCW1 ([facility]) Occult Blood eCW1 ([facility]) Bilirubin.total [Presence] in Urine by Test strip - Bilirubin eCW1 ([facility]) Protein [Presence] in Urine by Test strip - Protein eCW1 ([facility]) Urobilinogen [Mass/volume] in Urine by Test strip - Urobilinogen,Semi-Qn eCW1 ([facility]) WBC Esterase eCW1 ([facility]) Nitrite [Presence] in Urine by Test strip - Nitrite, Urine eCW1 ([facility]) Urinalysis Gross Exam eCW1 ([facility]) Ketones [Presence] in Urine by Test strip - Ketones eCW1 ([facility]) Procedure Social History Code Duration Value Status Description Data Source(s ) Smoking 07/10/2021 12:00:00 AM EST Never Smoker completed Never S moker eCW1 ([facility]) Smoking 07/10/2021 12:00:00 AM EST Never Smoker completed Never S moker eCW1 ([facility]) Smoking 07/02/2021 12:00:00 AM EST Never Smoker completed Never S moker eCW1 ([facility]) Smoking 07/02/2021 12:00:00 AM EST Never Smoker completed Never S moker eCW1 ([facility]) Smoking 07/02/2021 12:00:00 AM EST Never Smoker completed Never S moker eCW1 ([facility]) Smoking 07/02/2021 12:00:00 AM EST Never Smoker completed Never S moker eCW1 ([facility]) Smoking 05/09/2021 12:00:00 AM EDT Never Smoker completed Never S moker eCW1 ([facility]) Smoking 05/09/2021 12:00:00 AM EDT Never Smoker completed Never S moker eCW1 ([facility]) Vital Signs ID Date Data Source UNK Name Value Range Interpretation Code Description Data Source(s) Diastolic blood pressure 70 mm[Hg] 70 mm[Hg] eCW1 ([facility]) Body height 57.5 [in_i] 57.5 [in_i] eCW1 ([facility]) Body mass index (BMI) [Ratio] 31.217 kg/m2 31.2 17 kg/m2 eCW1 ([facility]) Systolic blood pressure 112 mm[Hg] 112 mm[Hg] e CW1 ([facility]) Body weight 146.8 [lb_av] 146.8 [lb_av] eCW1 ([facility]) Body weight 66.59 kg 66.59 kg eCW1 ([facility]) Body weight 146 [lb_av] 146 [lb_av] eCW1 ([facility]) Body weight 66.22 kg 66.22 kg eCW1 ([facility]) Body height 57.5 [in_i] 57.5 [in_i] eCW1 ([facility]) Body mass index (BMI) [Ratio] 31.04 kg/m2 31.04 kg/m2 eCW1 ([facility]) Systolic blood pressure 112 mm[Hg] 112 mm[Hg] e CW1 ([facility]) Diastolic blood pressure 74 mm[Hg] 74 mm[Hg] eCW1 ([facility]) Body weight 149.4 [lb_av] 149.4 [lb_av] eCW1 ([facility]) Body weight 67.77 kg 67.77 kg eCW1 ([facility]) Body height 57.5 [in_i] 57.5 [in_i] eCW1 ([facility]) Body mass index (BMI) [Ratio] 31.77 kg/m2 31.77 kg/m2 eCW1 ([facility]) Heart rate 91 /min 91 /min eCW1 ([facility]) Respiratory rate 16 /min 16 /min eCW1 ([facility]) Body temperature 96.8 [degF] 96.8 [degF] eCW1 ( [facility]) Systolic blood pressure 111 mm[Hg] 111 mm[Hg] e CW1 ([facility]) Diastolic blood pressure 72 mm[Hg] 72 mm[Hg] eCW1 ([facility]) ID Date Data Source [id number] 06/19/2021 12:56:00 PM EDT [facility] Name Value Range Interpretation Code Description Data Source(s) WEIGHT 48.611171 kilos 48.646383 kilos [facility] HEIGHT 147.32 centimeters 147.32 centimeter [facility] Patient Treatment Plan of Care Planned Activity Planned Date Details Description Data Source (s) Ondansetron 4 MG Disintegrating Oral Tablet 07/02/2021 12:00:00 AM EST eCW1 ([facility]) Ondansetron 4 MG Disintegrating Oral Tablet 07/02/2021 12:00:00 AM EST eCW1 ([facility]) Ondansetron 4 MG Disintegrating Oral Tablet 07/02/2021 12:00:00 AM EST eCW1 ([facility]) Ondansetron 4 MG Disintegrating Oral Tablet 07/02/2021 12:00:00 AM EST eCW1 ([facility]) Metoclopramide 10 MG Oral Tablet [Reglan] 06/10/2021 12:00:00 AM ED T eCW1 ([facility])
[2021-07-17] MEDS ORDERED: LIDOCAINE PRES-FREE 2% 10ML AMP As Ordered ONE ×2 (06:46→08:18)
[2021-07-17] MEDS ORDERED: propofoL 200 MG/20 ML VIAL As Ordered ONE (06:46)
[2021-07-17] MEDS ORDERED: fentaNYL 100 MCG/2 ML INJECTION (J3010) As Ordered ONE (06:58)
[2021-07-17 07:02] LABS: HEMATOCRIT 34.2 % (36.0-47.0); HEMOGLOBIN 11.5 g/dl (12.0-15.5); MEAN CORPUSCULAR HEMOGLOBIN 28.6 pg (27.0-33.0); MEAN CORPUSCULAR HGB CONC 33.6 g/dl (32.0-36.5); MEAN CORPUSCULAR VOLUME 85.1 fl (80.0-96.0); PLATELET COUNT, AUTOMATED 228 10^3/uL (150-450); RED BLOOD COUNT 4.02 10^6/uL (4.00-5.40); WHITE BLOOD COUNT 11.1 10^3/uL (4.0-10.0)
--- NOTE | 2021-07-17 07:46 | ROOPDOC ---
[facility] Report Of Operation Report of Operation DATE OF PROCEDURE: 07/17/21 PREOPERATIVE DIAGNOSIS: 1. Cervical insufficiency. 2. Intrauterine at 13 weeks 5 days gestational age. POSTOPERATIVE DIAGNOSIS: 1. Cervical insufficiency. 2. Intrauterine at 13 weeks 5 days gestational age. PROCEDURE PERFORMED: Prophylactic abdominal cervical cerclage. SURGEON: Mitzy Ferreira M.D. [employer]SEM[employer]IES SUPERVISOR: None. ANESTHESIA: Spinal. ESTIMATED BLOOD LOSS: 5 mL. INTRAVENOUS FLUID: 1000 mL of lactated ringer solution. URINE OUTPUT: 100 mL. PREOPERATIVE ANTIBIOTICS: None. DESCRIPTION OF OPERATION: After informed consent was obtained the written consent was reviewed. The patient was brought to the operating room where spinal anesthesia was placed. She was then placed in lithotomy position and was prepped no apparent disease draped in a normal sterile fashion. A time out in the operating room was then performed, identifying the patient and procedure to be performed as well as drug allergy. The speculum as well as retractors were placed into the vagina revealing the cervix and the anterior aspect of the cervix was grasped with forceps and was placed on traction. Using a #0-Prolene, a Ariza cerclage was performed starting at 12 o'clock and extending around to 9 o'clock. This was continued in a pursestring fashion down to 6 o'[address] all the way back to 12 o'clock and this was tied at 12 o'clock position. A second suture was placed behind this suture, once again starting at 12 o'clock extending around 9 o'clock in a pursestring fashion down to 6 o'clock around to 3 o'clock back to 12 o'clock position and this was tied down. Cervix was then inspected and noted to be hemostatic and grossly intact. On palpation the cervix felt soft with no strangulation due to cerclage placement. In and out catheter was performed productive of 100 mL of clear urine. The patient was then taken out of lithotomy position and was taken to recovery room in stable condition. Counts were correct. MITZY FERREIRA MD. Jul 17, 2021 07:46
[2021-07-17] MEDS ORDERED: PHENYLephrine 500MCG 5ML (100MCG/ML) SYRINGE As Ordered ONE (08:27)
[2021-07-17] MEDS ORDERED: ONDANSETRON 4MG/2ML VIAL As Ordered ONE (08:34)
[2021-07-17] MEDS ORDERED: fentaNYL 100 MCG/2 ML INJECTION (J3010) IV PRN (08:50)
[2021-07-17] MEDS ORDERED: LR 1,000 ML IV SCH (08:50)
[2021-07-17] MEDS ORDERED: ONDANSETRON 4MG/2ML VIAL IV PRN (08:50)
[2021-07-17] MEDS ORDERED: diphenhydrAMINE 50MG/ML VIAL (J1200) IV PRN (08:50)
[2021-07-17] MEDS ORDERED: METOCLOPRAMIDE INJ 10MG/2ML VIAL (J2765 PER 1) IV PRN (08:50)
[2021-07-17] MEDS ORDERED: HYDROMORPHONE HCL 0.5 MG/ 0.5 ML SYRINGE (J1170 PER 1) IV PRN (08:50)
[2021-07-17] MEDS ORDERED: oxyCODONE 5MG TAB PO PRN (08:50)
[2021-07-17 11:50] VITALS: BP 111/56
== END 2021-07-17 11:50 | disposition home or self-care (01) ==
LOC: M SDC 06:20
PROVIDERS: ATTEND Obstetrics & Gynecology
DX: O34.31 Maternal care for cervical incompetence, first trimester (principal); Z3A.13 13 weeks gestation of pregnancy; O99.611 Diseases of the digestive system complicating pregnancy, first trimester; K21.9 Gastro-esophageal reflux disease without esophagitis; Z87.442 Personal history of urinary calculi; Z79.899 Other long term (current) drug therapy
CPT/HCPCS: 36415; 59320; 85027; 86850; 86900; 86901; J1200; J2370; J2405; J3010

== ENCOUNTER → 2021-09-04 | Outpatient (CLI) | payer OTHER ==
[~2021-09-04] MED LIST changes: -LIDOCAINE 1% MDV 20ML VIAL SQ PRN; -LR 1,000 ML IV ONE
== END ==
LOC: M WHC 08:55
PROVIDERS: ATTEND Obstetrics & Gynecology
DX: Z36.9 Encounter for antenatal screening, unspecified (principal); Z3A.19 19 weeks gestation of pregnancy; Z87.42 Personal history of other diseases of the female genital tract

== ENCOUNTER → 2021-09-12 | Outpatient (REF) | payer OTHER | LOC: M SFHCWAGY 16:47 | PROVIDERS: ATTEND Obstetrics & Gynecology | DX: R30.0 Dysuria (principal) ==

== ENCOUNTER → 2021-09-27 | Outpatient (CLI) | payer OTHER | LOC: M WHC 08:37 | PROVIDERS: ATTEND Obstetrics & Gynecology | DX: Z36.2 Encounter for other antenatal screening follow-up (principal); Z3A.22 22 weeks gestation of pregnancy ==

== ENCOUNTER → 2021-10-15 | Outpatient (CLI) | payer MEDICAID, OTHER | LOC: M WHC 09:50 | PROVIDERS: ATTEND Obstetrics & Gynecology | DX: O36.5990 Maternal care for other known or suspected poor fetal growth, unspecified trimester, not applicable or unspecified (principal) ==

== ENCOUNTER → 2021-10-22 | Outpatient (CLI) | payer MEDICAID, OTHER | LOC: M WHC 08:47 | PROVIDERS: ATTEND Obstetrics & Gynecology | DX: O36.5990 Maternal care for other known or suspected poor fetal growth, unspecified trimester, not applicable or unspecified (principal) ==

== ENCOUNTER → 2021-10-29 | Outpatient (CLI) | payer MEDICAID, OTHER | LOC: M WHC 08:49 | PROVIDERS: ATTEND Obstetrics & Gynecology | DX: O36.5990 Maternal care for other known or suspected poor fetal growth, unspecified trimester, not applicable or unspecified (principal) ==

== ENCOUNTER → 2021-11-05 | Outpatient (CLI) | payer OTHER ==
[2021-11-05 13:18] LABS: HEMATOCRIT 30.4 % (36.0-47.0); HEMOGLOBIN 9.9 g/dl (12.0-15.5); MEAN CORPUSCULAR HEMOGLOBIN 27.9 pg (27.0-33.0); MEAN CORPUSCULAR HGB CONC 32.6 g/dl (32.0-36.5); MEAN CORPUSCULAR VOLUME 85.6 fl (80.0-96.0); PLATELET COUNT, AUTOMATED 231 10^3/uL (150-450); RED BLOOD COUNT 3.55 10^6/uL (4.00-5.40); WHITE BLOOD COUNT 10.4 10^3/uL (4.0-10.0)
[2021-11-05 15:05] LABS: GC DNA AMPLIFICATION NEGATIVE (NEGATIVE)
== END ==
LOC: M PLALAB 09:51
PROVIDERS: ATTEND Obstetrics & Gynecology
DX: O09.291 Supervision of pregnancy with other poor reproductive or obstetric history, first trimester (principal)

== ENCOUNTER → 2021-11-05 | Outpatient (CLI) | payer MEDICAID, OTHER | LOC: M WHC 08:42 | PROVIDERS: ATTEND Obstetrics & Gynecology | DX: O36.5990 Maternal care for other known or suspected poor fetal growth, unspecified trimester, not applicable or unspecified (principal) ==

== ENCOUNTER → 2021-11-12 | Outpatient (CLI) | payer MEDICAID, OTHER | LOC: M WHC 10:11 | PROVIDERS: ATTEND Obstetrics & Gynecology | DX: O36.5990 Maternal care for other known or suspected poor fetal growth, unspecified trimester, not applicable or unspecified (principal) ==

== ENCOUNTER → 2021-11-15 | Outpatient (CLI) | payer MEDICAID, OTHER | LOC: M LAB 08:01 | PROVIDERS: ATTEND Obstetrics & Gynecology | DX: O36.5990 Maternal care for other known or suspected poor fetal growth, unspecified trimester, not applicable or unspecified (principal); Z3A.00 Weeks of gestation of pregnancy not specified ==

== ENCOUNTER → 2021-11-19 | Outpatient (CLI) | payer OTHER | LOC: M WHC 08:44 | PROVIDERS: ATTEND Obstetrics & Gynecology | DX: O36.5990 Maternal care for other known or suspected poor fetal growth, unspecified trimester, not applicable or unspecified (principal) ==

== ENCOUNTER → 2021-11-26 | Outpatient (CLI) | payer OTHER | LOC: M WHC 08:43 | PROVIDERS: ATTEND Obstetrics & Gynecology | DX: O36.5990 Maternal care for other known or suspected poor fetal growth, unspecified trimester, not applicable or unspecified (principal) ==

== ENCOUNTER → 2021-12-03 | Outpatient (CLI) | payer OTHER | LOC: M WHC 10:34 | PROVIDERS: ATTEND Obstetrics & Gynecology | DX: O36.5990 Maternal care for other known or suspected poor fetal growth, unspecified trimester, not applicable or unspecified (principal); Z3A.32 32 weeks gestation of pregnancy ==

== ENCOUNTER → 2021-12-17 | Outpatient (REF) | payer OTHER, MEDICAID | LOC: M SFHCWAGY 16:49 | PROVIDERS: ATTEND Obstetrics & Gynecology | DX: O34.211 Maternal care for low transverse scar from previous cesarean delivery (principal) ==

== ENCOUNTER → 2021-12-17 | Outpatient (CLI) | payer OTHER | LOC: M WHC 10:38 | PROVIDERS: ATTEND Obstetrics & Gynecology | DX: O36.5990 Maternal care for other known or suspected poor fetal growth, unspecified trimester, not applicable or unspecified (principal) ==

== ENCOUNTER → 2021-12-24 | Outpatient (CLI) | payer OTHER ==
[~2021-12-24] MED LIST changes: +ONDA4TAB6 PO
== END ==
LOC: M WHC 08:39
PROVIDERS: ATTEND Obstetrics & Gynecology
DX: O36.5990 Maternal care for other known or suspected poor fetal growth, unspecified trimester, not applicable or unspecified (principal)

== ENCOUNTER → 2022-01-02 | Outpatient (CLI) | payer OTHER | LOC: M LABSMTC 09:08 | PROVIDERS: ATTEND Anesthesiology | DX: Z01.818 Encounter for other preprocedural examination (principal); Z11.52 Encounter for screening for COVID-19 ==

== ENCOUNTER 2022-01-06 07:30 | Inpatient (IN) | payer OTHER ==
[~2022-01-06] VITALS: Ht 146.1 cm; Wt 93.1 kg
[2022-01-07] VITALS (7 sets, daily range): BP systolic 105–131; BP diastolic 51–69
[2022-01-07] MEDS ORDERED: LR 1,000 ML IV ONE ×2 (05:30→17:15)
[2022-01-07] MEDS ORDERED: ACET500P3 PO (05:32)
[2022-01-07] MEDS ORDERED: HOME MED LIST COMPLETE! XX SCH (05:35)
[2022-01-07] MEDS ORDERED: ceFAZolin 2 GM/D5W 50 ML IV BAG (J0690 PER 500MG) As Ordered ONE (05:39)
[2022-01-07] MEDS ORDERED: BICITRA 30ML SOLN UDC As Ordered ONE (05:40)
[2022-01-07] MEDS ORDERED: ceFAZolin SOD 2 GM in IV 1 EA IV ONE (06:00)
[2022-01-07] MEDS ORDERED: BICITRA 30ML SOLN UDC PO ONE (06:00)
[2022-01-07] MEDS ORDERED: LR 1,000 ML IV SCH ×2 (06:30→09:35)
[2022-01-07 07:04] LABS: HEMATOCRIT 48.4 % (36.0-47.0); HEMOGLOBIN 15.4 g/dl (12.0-15.5); MEAN CORPUSCULAR HEMOGLOBIN 25.2 pg (27.0-33.0); MEAN CORPUSCULAR HGB CONC 31.8 g/dl (32.0-36.5); MEAN CORPUSCULAR VOLUME 79.3 fl (80.0-96.0); PLATELET COUNT, AUTOMATED 126 10^3/uL (150-450)
[2022-01-07] MEDS ORDERED: KETOROLAC 60MG 2ML VIAL As Ordered ONE (07:55)
[2022-01-07] MEDS ORDERED: MORPHINE PRES-FREE INJ 10 MG/10 ML VIAL As Ordered ONE (07:55)
[2022-01-07] MEDS ORDERED: ONDANSETRON 4MG/2ML VIAL As Ordered ONE ×2 (07:55→10:14)
[2022-01-07] MEDS ORDERED: MEASLES,MUMPS,RUBELLA VACCINE INJ (MMR-II) (90707) SC SCH (08:00)
[2022-01-07] MEDS ORDERED: SIMETHICONE 80MG CHEW TAB PO PRN (08:00)
[2022-01-07] MEDS ORDERED: RHOGAM 300 MCG (1500 IU) INJ (J2790) IM SCH (08:00)
[2022-01-07] MEDS ORDERED: MOM 30ML SUSPENSION UDC PO PRN (08:00)
[2022-01-07] MEDS ORDERED: OXYTOCIN DRIP 30 UNITS in IV 1 EA IV SCH (08:00)
[2022-01-07] MEDS ORDERED: ACETAMINOPHEN 1000MG 100ML IV BTL (OFIRMEV) (J0131 PER 10MG) As Ordered ONE (08:04)
[2022-01-07] MEDS ORDERED: PHENYLephrine 500MCG 5ML (100MCG/ML) SYRINGE As Ordered ONE (08:09)
[2022-01-07] MEDS ORDERED: METOCLOPRAMIDE INJ 10MG/2ML VIAL (J2765 PER 1) As Ordered ONE (08:13)
[2022-01-07] MEDS ORDERED: ePHEDrine SULFATE 25 MG/5 ML(5MG/ML) SYRINGE As Ordered ONE (08:15)
[2022-01-07] MEDS ORDERED: OXYTOCIN 30 UNITS IN 0.9% NaCl 500ML IV BAG (J2590) As Ordered ONE ×2 (08:38→09:27)
[2022-01-07] MEDS ORDERED: fentaNYL 100 MCG/2 ML INJECTION As Ordered ONE (08:51)
[2022-01-07] MEDS: PRENATAL VITAMINS CHEWABLE TABLET PO SCH (09:00)
[2022-01-07] MEDS: DOCUSATE SODIUM 100MG CAPSULE PO SCH ×2 (09:00→21:00)
[2022-01-07] MEDS ORDERED: fentaNYL 100 MCG/2 ML INJECTION IV PRN (09:35)
[2022-01-07] MEDS ORDERED: MEPERIDINE INJ 25 MG/ML VIAL (J2175) IV PRN (09:35)
[2022-01-07] MEDS ORDERED: HYDROMORPHONE HCL 0.5 MG/ 0.5 ML SYRINGE (J1170 PER 1) IV PRN (09:35)
[2022-01-07] MEDS ORDERED: INSULIN LISPRO (NovoLOG) PER UNIT SC PRN ×2 (09:35→12:00)
[2022-01-07] MEDS ORDERED: oxyCODONE 5MG TAB PO PRN (09:35)
[2022-01-07] MEDS: LR 1,000 ML IV SCH ×2 (10:18→18:19)
[2022-01-07] MEDS ORDERED: PROMETHAZINE 25MG/ML 1ML VIAL IV PRN (10:25)
[2022-01-07] MEDS ORDERED: diphenhydrAMINE 50MG/ML VIAL (J1200) IV PRN (10:30)
[2022-01-07] MEDS ORDERED: NALOXONE INJ 0.4MG/1ML VIAL (J2310 PER 1MG) IV PRN ×2 (10:30)
[2022-01-07] MEDS ORDERED: **NOTE PATIENT COMMENT** MISC XX SCH (10:30)
[2022-01-07] MEDS: ONDANSETRON 4MG/2ML VIAL IV PRN ×3 (10:41→22:11)
[2022-01-07] MEDS ORDERED: PROMETHAZINE 25MG/ML 1ML VIAL As Ordered ONE (10:41)
[2022-01-07] MEDS ORDERED: SCOPOLAMINE 1MG TRANSDERMAL PATCH TOP ONE (13:00)
[2022-01-07] MEDS: KETOROLAC 30 MG/ML 1ML VIAL IV SCH ×2 (15:31→21:18)
[2022-01-07] MEDS: SLF 3 ML SYR IV SCH (17:05)
[2022-01-07] MEDS: METOCLOPRAMIDE INJ 10MG/2ML VIAL (J2765 PER 1) IV PRN (18:20)
[2022-01-08] MEDS: METOCLOPRAMIDE INJ 10MG/2ML VIAL (J2765 PER 1) IV PRN (00:34)
[2022-01-08] MEDS: SLF 3 ML SYR IV SCH ×2 (00:35→03:00)
[2022-01-08] MEDS: LR 1,000 ML IV SCH ×2 (00:35→08:10)
[2022-01-08] MEDS: PERCOCET 5MG/325MG TAB PO PRN ×4 (00:46→18:56)
[2022-01-08 02:00] VITALS: BP 123/55
[2022-01-08] MEDS: KETOROLAC 30 MG/ML 1ML VIAL IV SCH (02:51)
[2022-01-08] MEDS: ONDANSETRON 4MG/2ML VIAL IV PRN (05:39)
[2022-01-08 06:00] VITALS: BP 128/59
[2022-01-08] MEDS: DOCUSATE SODIUM 100MG CAPSULE PO SCH ×2 (08:10→20:37)
[2022-01-08] MEDS: PRENATAL VITAMINS CHEWABLE TABLET PO SCH (08:10)
[2022-01-08 09:24] LABS: HEMATOCRIT 23.2 % (36.0-47.0); MEAN CORPUSCULAR HEMOGLOBIN 24.7 pg (27.0-33.0); MEAN CORPUSCULAR HGB CONC 30.6 g/dl (32.0-36.5); MEAN CORPUSCULAR VOLUME 80.8 fl (80.0-96.0); PLATELET COUNT, AUTOMATED 178 10^3/uL (150-450); RED BLOOD COUNT 2.87 10^6/uL (4.00-5.40); WHITE BLOOD COUNT 12.2 10^3/uL (4.0-10.0)
[2022-01-08 09:36] LABS: HEMOGLOBIN 7.1 g/dl (12.0-15.5)
[2022-01-08 10:00] VITALS: BP 110/56
[2022-01-08] MEDS: IBUPROFEN 800 MG TAB PO SCH ×2 (10:14→18:19)
[2022-01-08 14:00] VITALS: BP 115/56
[2022-01-08 18:00] VITALS: BP 113/52
[2022-01-08 22:00] VITALS: BP 116/56
[2022-01-09] MEDS: PERCOCET 5MG/325MG TAB PO PRN ×2 (01:03→09:00)
[2022-01-09 01:59] VITALS: BP 108/53
[2022-01-09] MEDS: IBUPROFEN 800 MG TAB PO SCH (03:04)
[2022-01-09 06:00] VITALS: BP 110/58
[2022-01-09] MEDS: PRENATAL VITAMINS CHEWABLE TABLET PO SCH (07:45)
[2022-01-09] MEDS: DOCUSATE SODIUM 100MG CAPSULE PO SCH (07:45)
[2022-01-09] MEDS ORDERED: COLA100C5 PO (08:31)
[2022-01-09] MEDS ORDERED: IBUP80TA PO (08:31)
[2022-01-09] MEDS ORDERED: PERCOCET PO (08:31)
== END 2022-01-09 10:22 | disposition home or self-care (01) | DRG 540 ==
LOC: M LDI 01-07 05:15 → M OBS 01-07 11:54
PROVIDERS: ADMIT Obstetrics & Gynecology; ATTEND Obstetrics & Gynecology
PROC: 0UB70ZZ Excision of Bilateral Fallopian Tubes, Open Approach (ICD-10-PCS; 2022-01-07)
PROC: 10D00Z1 Extraction of Products of Conception, Low, Open Approach (ICD-10-PCS; principal; 2022-01-07 07:30)
DX: O34.211 Maternal care for low transverse scar from previous cesarean delivery (principal); Z37.0 Single live birth; Z3A.39 39 weeks gestation of pregnancy; Z30.2 Encounter for sterilization

== ENCOUNTER → 2022-06-10 | Outpatient (REF) | payer OTHER ==
[~2022-06-10] MED LIST changes: +ACET500P3 PO; +PERCOCET PO
== END ==
LOC: M PLALAB 14:23
PROVIDERS: ATTEND Obstetrics & Gynecology
DX: Z01.419 Encounter for gynecological examination (general) (routine) without abnormal findings (principal)

== ENCOUNTER → 2022-06-10 | Outpatient (CLI) | payer MEDICAID, OTHER ==
[2022-06-10 18:50] LABS: FREE T4 0.88 NG/DL (0.76-1.46); THYROID STIMULATING HORMONE 0.687 uIU/ML (0.358-3.740)
== END ==
LOC: M PLALAB 12:47
PROVIDERS: ATTEND Obstetrics & Gynecology
DX: Z12.4 Encounter for screening for malignant neoplasm of cervix (principal); N92.6 Irregular menstruation, unspecified

== ENCOUNTER → 2023-06-15 | Outpatient (REF) | payer OTHER | LOC: M SFHCWAGY 10:52 | PROVIDERS: ATTEND Obstetrics & Gynecology | DX: Z01.419 Encounter for gynecological examination (general) (routine) without abnormal findings (principal) ==

== ENCOUNTER → 2023-09-17 | Outpatient (CLI) | payer OTHER, SELFPAY | LOC: M RAD 10:29 | PROVIDERS: ATTEND Surgery | DX: K42.9 Umbilical hernia without obstruction or gangrene (principal) ==

== ENCOUNTER → 2024-06-20 | Outpatient (REF) | payer OTHER ==
[~2024-06-20] MED LIST changes: +ONDA-282 PO; -ONDA4TAB6 PO
[2024-06-22 16:02] LABS: HPV APTIMA Not Detected (Not Detected)
== END ==
LOC: M PLALAB 14:36
PROVIDERS: ATTEND Obstetrics & Gynecology
DX: Z01.419 Encounter for gynecological examination (general) (routine) without abnormal findings (principal)

== ENCOUNTER → 2024-12-26 | Outpatient (REF) | payer OTHER ==
[2024-12-26 18:24] LABS: APPEARANCE, URINE CLEAR (CLEAR); BACTERIA, URINE AUTO NEGATIVE (NEGATIVE); BILIRUBIN, URINE AUTO NEGATIVE (NEGATIVE); BLOOD, URINE BLOOD 3+ (NEGATIVE); COLOR, URINE YELLOW (YELLOW); GLUCOSE, URINE (UA) AUTO NEGATIVE (NEGATIVE); KETONE, URINE AUTO NEGATIVE (NEGATIVE); LEUKOCYTE ESTERASE, URINE AUTO TRACE (NEGATIVE); NITRITE, URINE AUTO NEGATIVE (NEGATIVE); PROTEIN, URINE AUTO NEGATIVE (NEGATIVE); RBC, URINE AUTO 1 /HPF (0-3); SPECIFIC GRAVITY URINE AUTO 1.005 (1.002-1.035); SQUAMOUS EPITHELIAL CELL UR AU 3 /HPF (0-6); UROBILINOGEN, URINE AUTO 0.2 mg/dL (0.0-2.0); WBC, URINE AUTO 3 /HPF (0-3)
== END ==
LOC: M SFHCCLAY 13:51
PROVIDERS: ATTEND Physician Assistant
DX: R31.0 Gross hematuria (principal)

== ENCOUNTER → 2025-05-15 | Outpatient (REF) | payer OTHER ==
[2025-05-15 18:35] LABS: PLATELET COUNT, AUTOMATED 337 10^3/uL (150-450)
[2025-05-15 18:44] LABS: IRON (FE) 77 UG/DL (50-170)
[2025-05-15 19:10] LABS: ALT/SGPT 19 U/L (7.0-40); AST/SGOT 15 U/L (<34); CALCIUM LEVEL 9.5 MG/DL (8.5-10.1); CARBON DIOXIDE LEVEL 24 MMOL/L (20-31); CHLORIDE LEVEL 104 MMOL/L (98-107); CREATININE FOR GFR 0.75 MG/DL (0.55-1.30); FREE T4 1.31 NG/DL (0.89-1.76); GLOMERULAR FILTRATION RATE > 90.0 (>60); POTASSIUM SERUM 4.1 MMOL/L (3.5-5.1); SODIUM LEVEL 138 MMOL/L (136-145); VITAMIN B12 LEVEL 569 PG/ML (211-911)
== END ==
LOC: M SFHCCLAY 10:29
PROVIDERS: ATTEND Family Medicine
DX: Z00.00 Encounter for general adult medical examination without abnormal findings (principal); D64.9 Anemia, unspecified; L65.9 Nonscarring hair loss, unspecified

== ENCOUNTER → 2025-06-21 | Outpatient (REF) | payer OTHER ==
[2025-06-23 15:51] LABS: HPV APTIMA Not Detected (Not Detected)
== END ==
LOC: M SFHCWAGY 13:20
PROVIDERS: ATTEND Obstetrics & Gynecology
DX: Z01.419 Encounter for gynecological examination (general) (routine) without abnormal findings (principal)